=== PATIENT | female | born 2000 | race Caucasian/White ===

== ENCOUNTER 2019-05-17 19:07 | Emergency (ER) | payer OTHER, SELFPAY ==
[2019-05-17 19:09] VITALS: BP 156/80; PULSE 116; RESP 14; TEMP 36.7; O2SAT 100; BMI 39.0
--- NOTE | 2019-05-17 21:25 | ED.VIS.GEN ---
History of Present Illness Chief Complaint: Abd Pain Informant: Patient Onset: Today Narrative: Patient presents with right upper quadrant tenderness 40 minutes after eating fried foods 4:30 PM 5 hours ago. Symptoms now subsiding. No vomiting or diarrhea. No fevers. 2 weeks ago similar symptoms with fried foods. States at that time was adjusting her diet until today, she ate fried sweet potatoes. No past medical history. No surgical history. Prior similar symptoms: Yes Past Medical History - Allergies and Home Meds Allergies/Adverse Reactions: Allergies watermelon Allergy (Verified 05/17/19 19:09) Anaphylaxis lavender (Lavandula angustifolia) Adverse Reaction (Verified 05/17/19 19:09) Itching Primary Care Physician: Delmar Avila, UPSETTER SETTER UP-C [Primary Care Provider] - Past Medical History: None Smoking Status: Never smoker Review of Systems General: Denies: Chills, Fever, Sweats Eyes: Denies: Visual changes - bilaterally, Diplopia ENT: Denies: Rhinorrhea, Sore throat Cardiovascular: Denies: Chest pain, Palpitations Respiratory: Denies: Dyspnea, Cough, Dyspnea on exertion Gastrointestinal: Reports: Abdominal pain. Denies: Nausea, Vomiting, Diarrhea, Melena, Hematochezia Genitourinary: Denies: Dysuria, Hematuria, Frequency Musculoskeletal: Denies: Back pain, Extremity Pain Skin: Denies: Rash, Wounds Neurological: Denies: Headache, Weakness, Numbness Physical Exam Vital Signs/Narrative: Vital Signs Temp Pulse Resp BP Pulse Ox 05/17/19 19:09 98.0 F 116 H 14 156/80 H 100 General: Well nourished, Well developed, No Acute Distress Head: Normocephalic, Atraumatic Eyes: Perrl, EOMI ENT: Moist mucous membranes, No rhinorrhea Neck: Supple, Nontender Cardiovascular: Regular rate, Regular rhythm, No murmurs Respiratory: No distress, CTA bilaterally, Chest nontender Abdomen: Soft, Nontender, Nondistended, Normal bowel sounds, - - Negative McBurney's tenderness.. Negative for: Garnett's sign Back: Nontender, Normal Inspection Extremities: Nontender, No edema Skin: Normal color, No rash Neurological: Alert, Oriented x3, Cranial nerves II-XII grossly intact, Normal Strength, Normal Sensation Psychological: Normal affect, Normal Mood Diagnostic/Tx/Re-eval - Medical Decision Making Patient currently a nontender abdomen symptoms have resolved. With her history discussed with patient concerns for biliary colic. Offered discussed can obtain ultrasound however do not feel this is acutely flared that require any emergent surgeries. She understands agrees and will hold off at this time. Discussed withholding from fatty foods she is lactose intolerant and therefore will avoid dairy products. She will follow-up with her PCP for reevaluation return if any worsening symptoms. All questions were answered. ED Disposition - Plan for ED Patient: Disposition: Home or Assisted Living Diagnosis: Biliary colic Instructions: BILIARY COLIC with Gallstone (Presumed) Referrals: Delmar Avila, YVON-C [Primary Care Provider] - 5-7 Days
[2019-05-17 21:48] VITALS: BP 132/75; PULSE 100; RESP 16; O2SAT 97
== END 2019-05-17 21:48 | disposition home or self-care (01) ==
PROVIDERS: Emergency Provider Emergency Medicine; PCP Nurse Practitioner Family
DX: K80.50 Calculus of bile duct without cholangitis or cholecystitis without obstruction (principal)
CPT/HCPCS: 99282

== ENCOUNTER 2023-03-20 12:25 | Outpatient (CLI) | payer MEDICAID, SELFPAY ==
[2023-03-20 12:56] VITALS: BMI 46.5
[2023-03-20 13:03] VITALS: BP 133/80; PULSE 84
[2023-03-20 13:04] VITALS: TEMP 37.1
[2023-03-20 13:15] VITALS: BP 129/74; PULSE 82
[2023-03-20 13:54] LABS: Hemoglobin 10.3 g/dL (12.0-15.0); Mean Corp Hgb Conc 30.3 g/dL (32-36); Mean Corpuscular Hgb 22.2 pg (27.0-32.0); Mean Corpuscular Volume 73.4 fL (81-99); Mean Platelet Vol. 10.2 fl (6.2-12.0); Platelet Count 260 K/mm3 (150-450); RBC Distribution Width CV 14.6 % (11.6-14.6); RBC Distribution Width SD 38.7 fl (35.1-43.9); Red Blood Count 4.63 M/mm3 (4.2-5.4); White Blood Count 10.1 K/mm3 (4.4-11.0)
[2023-03-20 14:07] LABS: AST(SGOT) 11 U/L (15-37); Alanine Aminotransfer ALT/SGPT 8 U/L (13-56); Creatinine, Serum 0.76 mg/dL (0.55-1.02); EST Glomerular Filtration Rate 99 mL/min (>60); Est Glom Filt Rate - Afr Amer 119 mL/min (>60); Estimated Creatinine Clearance 123.43 ml/min; Protein, Urine (Random) 20.7 mg/dL (<11.9); Protein:Creat Ratio 274 mg/g CRE (0-200)
--- NOTE | 2023-03-24 18:32 | OB.TRI.PN ---
Progress Notes Progress Note: at 36weeks with GEOFF 04/17/23. Presents for elevated BP at home. No headache severe, visual changes or RUQ pain. No vaginal bleeding, fluid leakage or contractions. Laboratory Studies: Laboratory Tests 03/20/23 Range/Units 13:40 WBC 10.1 (4.4-11.0) K/mm3 RBC 4.63 (4.2-5.4) M/mm3 Hgb 10.3 L (12.0-15.0) g/dL Hct 34.0 L (37-47) % MCV 73.4 L (81-99) fL MCH 22.2 L (27.0-32.0) pg MCHC 30.3 L (32-36) g/dL RDW Std Deviation 38.7 (35.1-43.9) fl RDW Coeff of Ariella 14.6 (11.6-14.6) % Plt Count 260 (150-450) K/mm3 MPV 10.2 (6.2-12.0) fl Creatinine 0.76 (0.55-1.02) mg/dL Estim Creat Clear Calc 123.43 ml/min Est GFR (MDRD) Af Amer 119 (>60) mL/min Est GFR (MDRD) Non-Af 99 (>60) mL/min Uric Acid 6.0 (2.6-6.0) mg/dL AST 11 L (15-37) U/L ALT 8 L (13-56) U/L U Random Total Protein 20.7 H (<11.9) mg/dL Urine Creatinine 75.60 (NO RANGE EST.) mg/dL Protein/Creatinin Ratio 274 H (0-200) mg/g CRE NST 145, moderate, accels, no decels, reactive Assessment & Plan (1) 36 weeks gestation of : PLAN: Plan 1) BP normal range 2) PC ratio normal 3) Follow up outpatient tomorrow for further management recommendations. Preeclampsia precautions reviewed. 4) D/C home
== END 2023-03-20 14:05 | disposition home or self-care (01) ==
LOC: WPOUT 12:35 → WP 12:35
PROVIDERS: PCP Nurse Practitioner Family; Referring Provider Advanced Practice Midwife; Visit Provider Advanced Practice Midwife
DX: O99.891 Other specified diseases and conditions complicating pregnancy (principal); R03.0 Elevated blood-pressure reading, without diagnosis of hypertension; Z79.899 Other long term (current) drug therapy; Z3A.36 36 weeks gestation of pregnancy
CPT/HCPCS: 59025; 59050; 82565; 82570; 84156; 84450; 84460; 84550; 85027; 99221; G0378

== ENCOUNTER 2023-03-26 19:03 | Inpatient (IN) | payer MEDICAID, SELFPAY ==
[2023-03-26 19:27] VITALS: BP 157/88; PULSE 85; TEMP 37.2; O2SAT 99
[2023-03-26 19:34] VITALS: BMI 45.1
[2023-03-26 20:48] LABS: Absolute Lymphocyte Count 1.78 X10^3/uL (0.83-4.51); Absolute Neutrophil Count 6.9 X10^3/uL (2.0-7.7); Basophil# 0.04 X10^3/uL; Basophil% 0.4 % (0-1); Eosinophil# 0.25 X10^3/uL; Eosinophils% 2.6 % (0-5); Hematocrit 31.5 % (37-47); Hemoglobin 9.7 g/dL (12.0-15.0); Lymphocyte # 1.78 X10^3/ul (0.83-4.51); Lymphocyte % 18.5 % (19-41); Mean Corp Hgb Conc 30.8 g/dL (32-36); Mean Corpuscular Hgb 22.7 pg (27.0-32.0); Mean Corpuscular Volume 73.6 fL (81-99); Mean Platelet Vol. 10.3 fl (6.2-12.0); Monocyte% 6.3 % (0-10); NRBC Flagged by Analyzer 0 % (0-5); Neutrophil # 6.88 X10^3/uL (2.7-7.7); Neutrophil % 71.7 % (47-70); Platelet Count 274 K/mm3 (150-450); RBC Distribution Width CV 14.9 % (11.6-14.6); RBC Distribution Width SD 39.6 fl (35.1-43.9); Red Blood Count 4.28 M/mm3 (4.2-5.4); White Blood Count 9.6 K/mm3 (4.4-11.0)
[2023-03-26] MEDS: miSOPROStol 25 MCG TABLET PO (20:52)
[2023-03-26 21:02] LABS: AST(SGOT) 9 U/L (15-37); Alanine Aminotransfer ALT/SGPT 9 U/L (13-56); Creatinine, Serum 0.92 mg/dL (0.55-1.02); EST Glomerular Filtration Rate 80 mL/min (>60); Est Glom Filt Rate - Afr Amer 96 mL/min (>60); Estimated Creatinine Clearance 105.39 ml/min; Prothrombin Time (Protime)PT. 13.1 SECONDS (11.7-14.9); Uric Acid 6.2 mg/dL (2.6-6.0)
[2023-03-26 21:06] LABS: LDH 177 U/L (84-246)
[2023-03-26 21:22] LABS: Syphilis Antibodies Non-reactive
[2023-03-26 21:58] LABS: Bedside Glucose 101 mg/dL (74-106)
[2023-03-26 21:58] LABS: Bedside Glucose 101 mg/dL (74-106)
[2023-03-26] MEDS: CHLORHEXIDINE GLUC 2% CLOTH 1 EACH TOWELETTE TOPICAL (22:00)
[2023-03-26 22:07] LABS: Protein, Urine (Random) 126.5 mg/dL (<11.9); Protein:Creat Ratio 426 mg/g CRE (0-200)
[2023-03-26 23:05] VITALS: O2SAT 97
[2023-03-26 23:06] VITALS: BP 140/87; PULSE 77; TEMP 37.1; O2SAT 97
[2023-03-27] VITALS (35 sets, daily range): BP systolic 125–175; BP diastolic 74–106; PULSE 67–103; RESP 18; TEMP 36.6–37.8; O2SAT 95–100
[2023-03-27] MEDS: miSOPROStol 25 MCG TABLET PO ×2 (01:05→05:09)
[2023-03-27 04:53] LABS: Bedside Glucose 79 mg/dL (74-106)
[2023-03-27 04:53] LABS: Bedside Glucose 79 mg/dL (74-106)
[2023-03-27] MEDS: 0.9% Normal Saline Single 100 ML IV.SOLN. INTRA-UTER (08:00)
--- NOTE | 2023-03-27 08:14 | PCM.HP.OB ---
HPI - General General Date of Admission: 03/26/23 HPI Narrative ALISSA SANCHEZ, is a 23 F @ 37 weeks who presents for IOL for GHTN and GDMA1, obesity in - cytotec IOL was started. BPs have been mild range overnight. BS all WNL. pt denies OSORIO, visual changes. PFSH PFSH Medical History (Updated 03/27/23 @ 08:[address] Letitia Hall MD) Anxiety Depression Home Medications [id number] 40 mg-1 mg chewable tablet tab PO DAILY 03/26/23 [History Last Taken Unknown] Allergy/AdvReac Type Severity Reaction Status Date / Time bee pollen Allergy Mild sneezing Verified 03/26/23 21:58 watermelon Allergy Anaphylaxis Verified 03/26/23 19:33 lavender (Lavandula AdvReac Itching Verified 03/26/23 19:33 angustifolia) Surgical History Hx of tonsillectomy Social History Smoking Status: Never smoker History Elective abortions Hx Para 0 Spontaneous abortions Hx # Term Pregnancies Ectopic pregnancies Hx # Pregnancies Multiple births # of living children NST FHR Rate Baby A Baseline: 140 Variability:: Moderate Accelerations:: 15 x 15 Decelerations:: None NST Reactive:: Yes FHR Category:: Category I Uterine Activity:: occasional Vital Signs Vital Signs Vital Signs: 03/26/23 19:27 03/26/23 19:27 03/26/23 19:27 Temperature Temperature Source Temporal Pulse Rate 85 Blood Pressure 157/88 H BP Systolic 157 BP Diastolic 88 Pulse Ox 03/26/23 19:27 03/26/23 19:27 03/26/23 19:27 Temperature 99.0 F Temperature Source Temporal Pulse Rate Blood Pressure BP Systolic BP Diastolic Pulse Ox 99 03/26/23 19:27 03/26/23 19:27 03/26/23 23:06 Temperature 99.0 F Temperature Source Pulse Rate Blood Pressure 140/87 H BP Systolic 140 BP Diastolic 87 Pulse Ox 99 03/26/23 23:06 03/26/23 23:05 03/26/23 23:06 Temperature Temperature Source Temporal Pulse Rate 77 Blood Pressure BP Systolic BP Diastolic Pulse Ox 97 03/26/23 23:06 03/26/23 23:06 03/27/23 03:18 Temperature 98.7 F Temperature Source Pulse Rate Blood Pressure 142/84 H BP Systolic 142 BP Diastolic 84 Pulse Ox 97 03/27/23 03:18 03/27/23 03:17 03/27/23 03:17 Temperature Temperature Source Temporal Pulse Rate 67 Blood Pressure BP Systolic BP Diastolic Pulse Ox 99 03/27/23 03:17 03/27/23 03:17 03/27/23 07:43 Temperature 98.1 F Temperature Source Pulse Rate Blood Pressure 138/81 H BP Systolic 138 BP Diastolic 81 Pulse Ox 99 03/27/23 07:43 03/27/23 07:43 03/27/23 07:43 Temperature 98.4 F Temperature Source Temporal Pulse Rate 80 Blood Pressure BP Systolic BP Diastolic Pulse Ox Weight Weight: 146.692 kg Body Mass Index (BMI) 45.1 Physical Exam Narrative Fingertip/Thick/-5, Voss placed with 30cc NS Const alert and oriented x3 General Appearance: cooperative HEENT normocephalic GI GI Narrative: Gravid, non tender to palpation. OB / External & Speculum: external exam normal Extremity normal to inspection Skin no rashes or lesions noted Neuro oriented x3 and CN's II-XII intact bilaterally Psych Appearance: grossly normal Labs Labs Labs: Blood Type Pending Antibody Screen NEGATIVE Hct 31.5 % (37-47) L Hgb 9.7 g/dL (12.0-15.0) L Syphilis Total Ab Non-reactive Assessment & Plan (1) Obesity affecting : (2) Gestational diabetes: (3) Gestational hypertension affecting first : PLAN: Plan Admit to L&D Montior FHR/TOCO Epidural if requested for pain Monitor VS Anticipate was given cytotec- will transition to pitocin at 9am transcervical voss placed Bedside ultrasound confirmed VERTEX ON EXAM
[2023-03-27 08:54] LABS: Bedside Glucose 82 mg/dL (74-106)
[2023-03-27] MEDS: CHLORHEXIDINE GLUC 2% CLOTH 1 EACH TOWELETTE TOPICAL ×2 (09:03→20:30)
[2023-03-27] MEDS: Lactated Ringers 1,000 ML 50 ML IV ×2 (09:04→14:39)
[2023-03-27] MEDS: 0.9% Saline Lock 10 ML Syringe IV ×3 (09:08→14:36)
--- NOTE | 2023-03-27 09:41 | PCM.PN.BLA ---
Progress Note pt examined at bedside- voss expelled: /-3 AROM performed Clear fluid- large amt. IUPC and IFM placed.
[2023-03-27] MEDS: Oxytocin 15 Units/NS 250ml 15 UNITS/250 ML IV.SOLN 2 UNITS IV (10:30)
[2023-03-27] MEDS: LACTATED RINGERS 500 ML 999 ML IV (10:51)
[2023-03-27 11:58] LABS: Bedside Glucose 80 mg/dL (74-106)
[2023-03-27] MEDS: fentaNYL-bupivacaine (epidural) 100 ML BAG EPIDURAL ×2 (13:00→17:04)
[2023-03-27 15:32] LABS: Bedside Glucose 92 mg/dL (74-106)
[2023-03-27 19:51] LABS: Bedside Glucose 115 mg/dL (74-106)
[2023-03-27 20:39] LABS: Bedside Glucose 91 mg/dL (74-106)
--- NOTE | 2023-03-27 20:44 | PCM.PN.BLA ---
Progress Note late entry: at approximately 6pm I examined patient at bedside - VE: 4cm/70/-3 head was easily disengaged with minimal pressure. Discussed that cervix was stretchy 4cm. Discussed minimal change since morning AROM exam around 9:30am. Discussed option to continue Pitocin and Labor or Primary cs. Pt at that time wanted to continue labor. Pt was then checked by BENNY Goodman at 8pm- who described exam at 5-6cm/80/-3 again cervical exam stretchy. pt at this time discussed with nursing staff that she is exhausted and would like to proceed with elective C/S for maternal. Upon my arrival on unit pt declined another cervical exam until she is in OR and more comfortable. I discussed in detail risks of cs with patient including but not limited to bleeding, infection, wound dehiscence, injury to pelvic structures. Pt voiced understanding and was given opportunity to ask questions. OR Team notified and mobilized. PRE OP abx ordered. Will recheck patient in OR.
[2023-03-27] MEDS: Acetaminophen 500 MG Tablet PO (20:54)
[2023-03-27] MEDS: Cefazolin 3 GM in 0.9% Normal Saline (100mL Bag) 100 ML IV (21:03)
[2023-03-27] MEDS: Azithromycin 500 MG in Dextrose 5%-Water (250mL Bag) 250 ML 250 MG IV (21:12)
--- NOTE | 2023-03-27 21:28 | PLAC_PTH ---
PATIENT: ALISSA PINEDA LOC: [facility] U#:[id number] AGE/SX: 23/F ROOM: [facility] RE03/26/[address]: Dr. Letitia Hall, MDDOB: 2000 BED: 1 DIS: 03/30/2023 SPEC #: [id number] RECD: 03/28/23 08:33 STATUS: DYLON GONZALES #: [id number] DOLORES: 03/27/23 21:[address]: Letitia Hall DEPT: SURGICAL PATHOLOGY RECD BY: Eboni Glynn ENTERED: 03/28/23 08:34 SP TYPE: PLACENTA OTHR DR: Delmar Avila, INVENTORY ASSISTANT-C Tissues: Placenta, NOS Procedures: Surgery Specimen Level V HEADER OPERATION: Primary section PRE-OP DIAGNOSIS: Pre-e/diabetes TISSUE SUBMITTED: Placenta MICROSCOPIC DIAGNOSIS [place] placenta (578 gm): Umbilical cord - trivascular with no evidence of inflammation. Placental membranes - No pathologic change. Placental disc - foci of organizing intraparenchymal hemorrhage, Yadi-Yaya change and intravillous and intervillous congestion. AM:pedro 03/30/2023 MICROSCOPIC DESCRIPTION Slides are reviewed. GROSS DESCRIPTION SPECIMEN: PLACENTA / CLINICAL INFORMATION: A. Weight: 3.03 kg B. Gestational Age: 37 weeks C. Sex: Male PLACENTAL WEIGHT (POST FIXATION): 578 gm PLACENTAL DIMENSIONS: 17.0 x 15.0 x 3.5 cm PLACENTAL SHAPE: Usual ovoid PLACENTAL WEIGHT FOR GESTATIONAL AGE: Greater than 99th percentile MEMBRANES - Present A. Insertion: Marginal, minimal membranous tissue adherent to peripheral margin B. Site of rupture from edge: At edge of placental disc C. Color of membrane: Jones-hazel D. Abnormalities: None UMBILICAL CORD - Present A. Color: Jones-hazel B. Insertion: Eccentric C. Length: 52.0 cm D. Diameter: 1.6 cm E. Number of vessels: Three F. Abnormalities: None PLACENTAL DISC - Present A. Color of surface: Jones-hazel B. surface abnormalities: None C. Maternal cotyledons: Intact with minimal tears D. Attached retro placental clot: No clot E. Cut surface: Dark red and spongy F. Lesions: Serial sections reveal two firm, jones-white lesions measuring 1.2 x 1.0 x 0.6 cm and 1.5 x 0.5 x 0.5 cm G. Separate clot: 13.0 x 9.0 x 2.0 cm SECTIONS SUBMITTED: 1. Umbilical cord ( end notched) 2. Umbilical cord, placental end 3. Membrane roll 4. Placental disc, and maternal surfaces, lesion 5. Placental disc, and maternal surfaces, lesion 6. Placental disc, and maternal surfaces AM:pedro 03/29/2023 TC:5 CPT: 21018
--- NOTE | 2023-03-27 21:52 | EX.PCM.OBRPT ---
Details Operative Information Date of Procedure: 03/27/23 Pre-Operative Diagnosis: 37 weeks, Preeclampsia w/o severe features, GDMA1, obesity in , failed IOL, maternal exhaustion, Post-Operative Diagnosis: same, live male infant Indications Narrative: Pt still 4-5cm/70-80/-3 - after 11 hours of AROM, Pitocin with adequate contractions. Pt Given option to continue with IOL - pt opting for Primary cs at this time. Classification: LUISA Procedure Type: low transverse beader #1: Padmini Barboza Type of Anesthesia: Epidural Antibiotic Given: Ancef 3 grams IV x1 and Zithromax 500 mg/5 mL X1 Drain: Schrader to straight drain Estimated Blood Loss: 600 Fluids Replaced: 1100 Procedure Start Time: 21:20 Procedure Stop Time: 21:59 Time of Delivery: 21:28 Findings Description of Procedure: After informed consent was obtained the patient was taken the operating room She was then placed in the supine position. She was prepped and draped in the normal sterile fashion. epidural Anesthesia was found to be adequate. At this time a Pfannenstiel skin incision was made with a knife was carried down to the underlying layer of the fascia. The fascial incision was then extended laterally using curved Chairez scissor. Attention was then turned to the superior aspect of the fascial edge was grasped with 2 straight Grimstead clamps tented up and the rectus muscle dissected off sharply using curved Chairez scissor. Rectus muscles were then in the midline bluntly and peritoneum was entered bluntly. Gentle opposing traction was placed. At this time the vesicouterine peritoneum was identified. Zhou-O rectractor placed. Scalpel was used to make a uterine incision in a low transverse fashion. The uterus was then entered bluntly gentle opposing traction was placed to extend this incision. Cord was clamped and cut was handed to the waiting nursery team. The Placenta was removed from the uterus. The uterus was then removed from the abdominal cavity. The uterus was cleared of all clots and debris using a lap. At this time the uterine incision was reapproximated using #1 Vicryl in a running locked fashion. Hemostasis was appreciated. Posterior cul-de-sac was then cleared of all clots and debris. Zhou O removed- Uterus was placed back in the abdominal cavity. Gutters were cleared of all clots and debris. Uterine incision was reevaluated and noted to be of excellent hemostasis. Kulwant placed over incision. At this time the peritoneum was grasped with Kellys reapproximated using #2 Vicryl suture in a running fashion. Kulwant placed over rectus muscle. Fascia was then reapproximated using #1 PDS in a running fashion. Subcu layer was Irrigated with NS Bovie used to coagulate any oozing. Kulwant placed and then reapproximated with #2 0 plain gut suture in an interrupted fashion. Subcu layer was closed using 4-0 Monocryl in a subcu fashion. Dry sterile dressing was applied. Instrument lap needle count correct ?2. Anticipated normal postoperative course. Presentation: Positive for Vertex Amniotic Fluid Description: Clear Placental Delivery Description: Expressed Placenta Disposition: [facility] Specimen(s) Sent to Pathology: placenta Cord Vessel Description: 3 Vessels Cord Entanglement: None A Gender: Male (1 minute): 8 (5 minute): 9 Delayed Cord Clamping: Yes Complications Risks of Surgery Discussed w/Patient: Bleeding, Anesthesia Risks, Infection, Need for Future C-Sections and Injury to surrounding structure(s) including bowel and bladder Complications: none
[2023-03-27] MEDS: Oxytocin 15 Units/NS 250ml 15 UNITS/250 ML IV.SOLN 83 UNITS IV (22:07)
[2023-03-27] MEDS: HYDROmorphone 1 MG/ML Syringe IV (22:55)
[2023-03-27] MEDS: Ketorolac 30 MG/ML Syringe IV (22:56)
[2023-03-27 23:08] LABS: Pathology Specimen OB SEE PATHOLOGY REPORT
[2023-03-28] VITALS (9 sets, daily range): BP systolic 117–157; BP diastolic 68–92; PULSE 76–105; RESP 16–18; TEMP 36.4–37.1; O2SAT 95–99
[2023-03-28] MEDS: Lactated Ringers 1,000 ML 100 ML IV (01:32)
[2023-03-28] MEDS: Acetaminophen 650 MG/20 ML UDC 1000 MG PO ×4 (03:39→22:19)
[2023-03-28] MEDS: Ketorolac 30 MG/ML Syringe IV ×3 (04:53→17:23)
[2023-03-28 05:16] LABS: Bedside Glucose 102 mg/dL (74-106)
--- NOTE | 2023-03-28 06:37 | NURSING ---
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 Pharmacy was called prior to pts c/s to discuss flavoring of Bicitra Pharmacy unable to confirm flavoring ingredients in Bicitra. This was discussed with and Louie DOUGLASS prior to C/S and decision was made not to give pre op Bicitra
--- NOTE | 2023-03-28 06:38 | NURSING ---
epidural cath removed. blue tip intact.
[2023-03-28 06:47] LABS: Hematocrit 28.9 % (37-47); Hemoglobin 8.7 g/dL (12.0-15.0); Mean Corp Hgb Conc 30.1 g/dL (32-36); Mean Corpuscular Hgb 22.1 pg (27.0-32.0); Mean Corpuscular Volume 73.5 fL (81-99); Mean Platelet Vol. 10.3 fl (6.2-12.0); Platelet Count 235 K/mm3 (150-450); RBC Distribution Width CV 14.8 % (11.6-14.6); RBC Distribution Width SD 39.4 fl (35.1-43.9); Red Blood Count 3.93 M/mm3 (4.2-5.4); White Blood Count 11.5 K/mm3 (4.4-11.0)
--- NOTE | 2023-03-28 08:25 | PN.OBGYN_ITS ---
Subjective Subjective Doing well per patient and nursing staff. Ambulating and taking PO without difficulty. Voiding and passing flatus. Pain controlled. , services for assistance. Denies headache, visual changes, chest pain, shortness of breath, leg pain or increased bleeding. Lochia normal. Objective Data Objective Data Vital Signs: Vital Signs Temp Pulse Resp BP Pulse Ox O2 Del Method 98.6 F 76 18 129/79 H 97 Room Air 03/27/23 22:07 03/28/23 06:46 03/28/23 06:46 03/28/23 06:46 03/28/23 01:19 03/28/23 06:46 Oxygen Delivery Method Room Air Weight: 323 lb 6.4 oz Body Mass Index (BMI) 45.1 Intake & Output: Intake and Output for Last 24 Hours 03/26/23 03/27/23 03/28/23 23:59 23:59 23:59 Intake Total 1206.54 / 1206.54 620 / 620 Output Total 50 / 50 1025 / 1025 1050 / 1050 Balance -50 / -50 181.54 / 181.54 -430 / -430 Lab / Micro Data 03/28/23 06:41 03/26/23 20:30 Labs: Laboratory Results - last 24 hr 03/27/23 07:55: POC Glucose 82 03/27/23 11:40: POC Glucose 80 03/27/23 15:08: POC Glucose 92 03/27/23 19:32: POC Glucose 115 H 03/27/23 20:19: POC Glucose 91 03/28/23 01:24: POC Glucose 53 L 03/28/23 04:36: POC Glucose 102 03/28/23 06:41: WBC 11.5 H, RBC 3.93 L, Hgb 8.7 L, Hct 28.9 L, MCV 73.5 L, MCH 22.1 L, MCHC 30.1 L, RDW Std Deviation 39.4, RDW Coeff of Ariella 14.8 H, Plt Count 235, MPV 10.3 ROS Constitutional Constitutional: Reports systems reviewed and no addt'l complaints, except as documented; Denies headache(s) Eyes Eyes: Denies acute decrease in peripheral vision, blurry vision or change in vision ENT HEENT: Reports systems reviewed and no addt'l complaints, except as documented Cardiovascular Cardiovascular: Denies chest pain or dizziness Respiratory/Chest Respiratory/Chest: Denies cough, dyspnea, dyspnea on exertion, shortness of br eath at rest or shortness of breath with exertion Gastrointestinal Gastrointestinal: Denies abdominal pain, diarrhea, nausea or vomiting Genitourinary Genitourinary: Denies abdominal discomfort Musculoskeletal Musculoskeletal: Denies limited range of motion Integumentary Integumentary: Reports systems reviewed and no addt'l complaints, except as documented Neurologic Neurologic: Reports systems reviewed and no addt'l complaints, except as documented Psychiatric Psychiatric: Reports systems reviewed and no addt'l complaints, except as documented Endocrine Endocrinology: Reports systems reviewed and no addt'l complaints, except as documented Hematologic/Lymphatic Hematologic/Lymphatic: Reports systems reviewed and no addt'l complaints, except as documented Allergic/Immunologic Allergic/Immunologic: Reports systems reviewed and no addt'l complaints, except as documented Physical Exam Const alert and oriented x3 General Appearance: cooperative Orientation / Consciousness: awake, oriented to person, oriented to place and oriented to time Exam Limitations: no limitations HEENT normocephalic Head and Scalp: normal to inspection, normocephalic and atraumatic Face and Sinus: normal facial exam Eyes General Eye: normal appearance of both eyes Neck full ROM Chest Chest: symmetrical chest wall rise Resp normal respiratory effort and normal air movement Auscultation: clear to auscultation bilaterally Cardio regular rate, regular rhythm, S1 normal heart sound, S2 normal heart sound, no murmurs, no rub, no gallops and no clicks GI normal to inspection, nondistended, normoactive bowel sounds and non-tender GI Narrative: Dressing dry and intact. Fundus firm 2 below U appearance of the vagina normal Bladder / Kidney Exam: no CVA tenderness Back/Spine normal ROM Extremity normal to inspection and full ROM Skin no rashes or lesions noted Neuro oriented x3, CN's II-XII intact bilaterally and moves all extremities Sensorium / Orientation: awake, alert and oriented to person Motor Exam: clonus absent Deep Tendon Reflexes: Rt Patellar (L4): 2+ and Lt Patellar (L4): 2+ Assessment & Plan (1) Delivery by section: (2) Preeclampsia: (3) Gestational hypertension affecting first : (4) Gestational diabetes: (5) Acute blood loss anemia: PLAN: Plan 1) POD#1 Primary sectin 2) Acute blood loss anemia, iron infusion 3) Pain management 4) BP trending down, will monitor and start anti hypertensives if necessary. Asymtomatic 5) I&O 6) Planning D/C POD #3 for Preeclampsia
[2023-03-28] MEDS: Senna/Docusate Sodium 1 Tablet PO (09:27)
[2023-03-28] MEDS: oxyCODONE 5 MG Tablet PO (09:59)
[2023-03-28] MEDS: Iron Sucrose Complex 200 MG in 0.9% Normal Saline (100mL Bag) 100 ML 220 MG IV (11:02)
[2023-03-28] MEDS: Enoxaparin 40 MG/0.4 ML Syringe SC ×2 (11:02→22:19)
[2023-03-28] MEDS: 0.9% Saline Lock 10 ML Syringe IV ×3 (11:03→17:23)
[2023-03-28] MEDS: Ibuprofen 100 MG/5 ML UDC 600 MG PO (23:42)
[2023-03-29 02:06] VITALS: BP 138/81; PULSE 85; RESP 16; TEMP 36.2; O2SAT 95
[2023-03-29] MEDS: Acetaminophen 650 MG/20 ML UDC 1000 MG PO ×3 (05:08→19:26)
[2023-03-29] MEDS: Ibuprofen 100 MG/5 ML UDC 600 MG PO ×3 (05:10→18:25)
[2023-03-29] MEDS: 0.9% Saline Lock 10 ML Syringe IV (05:49)
[2023-03-29 07:36] VITALS: BP 139/80; PULSE 92; RESP 16; TEMP 36.7; O2SAT 98
[2023-03-29 11:01] VITALS: BP 143/75; PULSE 104; RESP 18; TEMP 36.9; O2SAT 98
[2023-03-29] MEDS: Senna/Docusate Sodium 1 Tablet PO (11:02)
[2023-03-29] MEDS: Enoxaparin 40 MG/0.4 ML Syringe SC ×2 (11:03→22:44)
[2023-03-29 12:13] VITALS: BP 139/86
--- NOTE | 2023-03-29 13:22 | PCM.PN.CNM ---
Subjective Subjective Patient seen at bedside. Feeling good. Pain is controlled with PO medications. Ambulating and voiding without difficulty. Lochia decreasing. Passing flatus. Denies any headache, dizziness, vision changes, SOB, or CP. Objective Data Objective Data Vital Signs: Vital Signs Temp Pulse Resp BP Pulse Ox O2 Del Method 98.5 F 104 H 18 139/86 H 98 Room Air 03/29/23 11:01 03/29/23 11:01 03/29/23 11:01 03/29/23 12:13 03/29/23 11:01 03/29/23 07:36 Oxygen Delivery Method Room Air Weight: 323 lb 6.4 oz Body Mass Index (BMI) 45.1 Intake & Output: Intake and Output for Last 24 Hours 03/27/23 03/28/23 03/29/23 23:59 23:59 23:59 Intake Total 1206.54 / 1206.54 1730 / 1730 Output Total 1025 / 1025 1750 / 1750 Balance 181.54 / 181.54 -20 / -20 Lab / Micro Data 03/28/23 06:41 03/26/23 20:30 Labs: Laboratory Results - last 24 hr 03/28/23 01:24: POC Glucose Cancelled ROS Eyes Eyes: Denies blurry vision, change in vision or spots in vision ENT HEENT: Denies dizziness or headache(s) Cardiovascular Cardiovascular: Denies abdominal pain, chest pain or dyspnea Respiratory/Chest Respiratory/Chest: Denies cough, dyspnea, shortness of breath at rest or shortness of breath with exertion Gastrointestinal Gastrointestinal: Denies abdominal pain, diarrhea or vomiting Genitourinary Genitourinary: Denies change in urinary stream, difficulty urinating or dysuria Musculoskeletal Musculoskeletal: Reports none Integumentary Integumentary: Denies rash Neurologic Neurologic: Denies dizziness, headache(s), memory loss or weakness Physical Exam Narrative Dressing is dry and intact Const alert and no apparent distress General Appearance: cooperative and comfortable Exam Limitations: no limitations HEENT normocephalic Eyes General Eye: normal appearance of both eyes Neck full ROM General: normal visual inspection Chest Chest: symmetrical chest wall rise Resp normal respiratory effort and normal air movement Effort and Inspection: symmetric chest movement Auscultation: clear to auscultation bilaterally Cardio regular rate and regular rhythm GI normal to inspection, nondistended, normoactive bowel sounds Back/Spine normal ROM Extremity full ROM and no calf tenderness General Extremity: normal exam except as noted Skin no rashes or lesions noted Neuro CN's II-XII intact bilaterally Psych mental status grossly normal Assessment & Plan (1) Acute blood loss anemia: (2) Delivery by section: (3) Preeclampsia: (4) Obesity affecting : (5) Gestational hypertension: (6) Gestational diabetes: PLAN: Plan POD 2 Primary C/S Routine care Pain control BP's running 140's/80's Start Procardia 30 mg XL daily S/P iron transfusion Cannot recheck CBC due to inability to get blood- lab and anesthesia tried for blood draw- Patient refusing another blood draw Anticipate discharge home tomorrow
[2023-03-29 16:00] VITALS: BP 138/78; PULSE 102; RESP 16; TEMP 36.6; O2SAT 98
[2023-03-29] MEDS: NIFEdipine 30 MG Tablet PO (17:39)
[2023-03-29] MEDS: hydrOXYzine PAM 25 MG Capsule 50 MG PO (19:26)
[2023-03-29 20:15] VITALS: BP 126/68; PULSE 99; RESP 16; TEMP 37.1; O2SAT 100
[2023-03-30] MEDS: Ibuprofen 100 MG/5 ML UDC 600 MG PO ×2 (00:11→06:19)
[2023-03-30] MEDS: Acetaminophen 650 MG/20 ML UDC 1000 MG PO ×2 (01:12→07:46)
[2023-03-30 02:46] VITALS: BP 131/71; PULSE 92; RESP 16; TEMP 36.6; O2SAT 96
--- NOTE | 2023-03-30 07:24 | DS.PCM_ITS ---
Providers Date of Admission: 03/26/23 Primary Care Physician: Delmar Avila, VP BUSINESS DEVELOPMENT-C Reason For Visit: PRIMARY C- SECTION Diagnosis Discharge Diagnosis (1) Acute blood loss anemia: Status: Acute Code(s): D62 - Acute posthemorrhagic anemia (2) Delivery by section: Status: Acute (3) Preeclampsia: Status: Acute Code(s): O14.90 - Unspecified pre-eclampsia, unspecified trimester (4) Obesity affecting : Status: Acute Code(s): O99.210 - Obesity complicating , unspecified trimester (5) Gestational hypertension: Status: Acute Code(s): O13.9 - Gestational [-induced] hypertension without significant proteinuria, unspecified trimester (6) Gestational diabetes: Status: Acute Code(s): O24.419 - Gestational diabetes mellitus in , unspecified control Plan POD 3 Primary C/S Pain control support BP stable D/C home with follow up in office next week Medications at Discharge Home Medications [id number]-svdv-LF 40 mg-1 mg chewable tablet tab PO DAILY 03/26/23 acetaminophen 650 mg/20.3 mL oral solution 1,000 mg (31.2308 mL) PO Q6H #0 mL 03/30/23 hydroxyzine pamoate 25 mg capsule 50 mg (2 x 25 mg) PO TID PRN PRN Anxiety #60 caps 03/30/23 ibuprofen 100 mg/5 mL oral suspension (Children's Ibuprofen) 600 mg (30 mL) PO Q6H #0 mL 03/30/23 nifedipine 30 mg tablet,extended release 24 hr 30 mg PO DAILY #30 tabs 03/30/23 sennosides 8.6 mg-docusate sodium 50 mg tablet (Stool Softener-Stimulant Laxative) 1 - 2 tab PO DAILY #0 tabs 03/30/23 Hospital Course Operations section Procedures None Summary of Care Provided Minutes Spent on Discharge: 20 Hospital Course: Patient had primary section. Hospital course was uneventful Physical Exam Narrative Dressing is dry and intact. Denies any headache, vision changes, RUQ pain, SOB or CP. Requesting discharge home today. Const alert and no apparent distress General Appearance: cooperative and comfortable Exam Limitations: no limitations HEENT normocephalic Eyes General Eye: normal appearance of both eyes Neck full ROM General: normal visual inspection Chest Chest: symmetrical chest wall rise Resp normal respiratory effort and normal air movement Effort and Inspection: symmetric chest movement Auscultation: clear to auscultation bilaterally Cardio regular rate and regular rhythm GI normal to inspection, nondistended, normoactive bowel sounds Back/Spine normal ROM Extremity full ROM and no calf tenderness General Extremity: normal exam except as noted Skin no rashes or lesions noted Neuro CN's II-XII intact bilaterally Psych mental status grossly normal Weight / BMI Weight Weight: 323 lb 6.4 oz Body Mass Index (BMI) 45.1 ABG / Lab / Microbiology Data 03/28/23 06:41 03/26/23 20:30 D/C Instructions Discharge Diet: No restrictions Discharge Activity: May Drive (2 weeks) and May Shower May resume sexual activity in: 6-8 weeks Weight Bearing Status: Weight bearing as tolerated Call your doctor if your incision/area has: Continuous Slow Oozing, Sudden Increased Bleeding, Increased Pain/ Swelling, Increased Redness, Foul Smelling Discharge and Swelling at the incision site Call your doctor if you observe: Fever of 101 or Higher, Numbness or Tingling, Using more than 1 pad per hour, Shortness of breath, Dizziness, Swelling in the ankles, Chest pain, Calf discomfort and Uncontrolled pain Suture Line Care: Avoid Pulling/Pushing Change Dressing in: leave in place till F/U Remove Dressing in: leave until fall off Additional Instructions: Take blood pressure daily- report any out of range results of >160/110 or any headaches with vision changes, SOB or CP When: 1 week for blood pressure and incision check Meaningful Use Info Meaningful Use Diagnoses (Choose all that apply): None applicable Discharge Plan Admission Admit Date/Time: 03/26/23 19:03 Primary Reason for Your Visit: Labor and Delilvery Attending Provider: Letitia Hall Primary Care Provider: Delmar Avila NP Discharge Orders/Prescriptions Prescriptions: New nifedipine 30 mg Tablet Extended Release 24hr 30 mg PO DAILY Qty: 30 0RF sennosides-docusate sodium [Stool Softener-Stimulant Laxat] 8.6-50 mg Tablet 1 - 2 tab PO DAILY Qty: 0 0RF ibuprofen [Children's Ibuprofen] 100 mg/5 mL Suspension 600 mg PO Q6H Qty: 0 0RF hydroxyzine pamoate 25 mg Capsule 50 mg PO TID PRN PRN (Reason: Anxiety) Qty: 60 0RF acetaminophen 650 mg/20.3 mL Solution 1,000 mg PO Q6H Qty: 0 0RF Continued [id number]-psiy-YL 40-1 mg tablet,chewable PO DAILY Referrals / Follow Up: Delmar vAila VP BUSINESS DEVELOPMENT, VP BUSINESS DEVELOPMENT-C [Primary Care Provider] - Disposition Disposition (needs filled in before D/C Order can be placed): Home, Self Care
[2023-03-30 08:17] VITALS: BP 132/79; PULSE 86; RESP 16; TEMP 36.5; O2SAT 100
[2023-03-30 08:31] VITALS: BP 132/79; PULSE 86; RESP 16; TEMP 36.5; O2SAT 100
[2023-03-30] MEDS: Senna/Docusate Sodium 1 Tablet PO (09:27)
--- NOTE | 2023-03-30 10:19 | CASEMGMT ---
Social Work Assessment Labor and Delivery Unit Patient Address: [address] [place] [address] Phone number: [phone] Date of Referral: 03/28/23 Time of Referral:? [phone] Referred By: Letitia Johnson Date of Intervention: ??03/28/23 Time of Intervention:?1300 Reason for Referral:? Mental health, history of anxiety Sw completed chart review and acknowledges social work consult due to maternal mental health history positive for anxiety. Sw presented to bedside and introduced self to mother of baby (MOB- Erlinda) and father of baby (FOB- Asa). Sw explained reason for social work consult and completed psychosocial assessment. Sw asked FOB to step out of room momentarily so that MOB could complete Procious Depression Scale. FOB did so willingly and respectfully. History obtained from: medical records, MOB and FOB Household composition: Currently residing in the home is MOB and FOMeel, and now baby boy. Parents deny any concerns or issues with their housing at this time. Patient's parent/guardian status:? MIMI reports that parents have been together for 2.5 years, they met through work. While meeting with MOB privately she denies any concerns with domestic violence or intimate partner violence. ? Medical History: ?MIMI is 23 year old female who is 1, para 0- now 1 following labor and delivery of . MIMI received routine care during with [facility]. MIMI delivered baby boy via following an induction of labor at 36 weeks gestation. Baby boy, named Guillermo Mc was born weighing 7lb and his apgars were 8 and 9 at one and five minutes of life respectfully. MOB states that she is and it is going well. met with MOB and baby while sw was in room, and reported that for being born early baby was feeding very well. MOB states that baby will be followed by Dr. Maloney for pediatrics. Educational Status:?Both parents graduated from high school and deny issues with reading, learning or comprehension. MOB obtained her licensure in cosmetology. Financial Status: Both parents are gainfully employed outside of the home. MOB is a is manager and is able to take off as much time as she needs. 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 Supplies:?? Parents have obtained all necessary baby supplies, including: car seat, safe sleep space, clothes, diapers and wipes. MIMI states that she also has a breast pump for home. Childcare/Caregiver(s):? During maternity leave MOB will be the primary caregiver to baby, along with FOB when he is not at work. MIMI states that one of her clients runs an in-home daycare and baby will be able to go there for childcare should parents work schedules overlap with each other. Transportation:?Both parents have their drivers license and reliable means of transportation. NO transportation barriers at this time. Programs/Agencies Involved: MIMI is connected to insurance though [employer] and [facility] ([place]). Rj provided list of critical access hospital resources for parents to reference should any needs or concerns present themselves. ??? Children Services/Legal Issues:??? No history of involvement with Children Services, no issues or concerns warranting a referral to be made at this time. Behavioral Health Issues: ??Mental Health History:?PHYLICIA denies mental health history. MIMI states that she has been diagnosed with anxiety and depression. MIMI states that these diagnoses are a result of a lot of things throughout her lifetime. MIMI states that she is prescribed zoloft to help manage her symptoms. MIMI completed Procious depression scale, her score was an 11. Rj educated MIMI on importance of being aware of her symptoms and encouraged linkage to community mental health supports throughout her journey. MIMI stated that PHYLICIA is a good support person for her and he would be able to recognize when MIMI is struggling, and he would know how to offer support. ?? Substance Use History: MIMI denies substance use prior to and during . ?? Family History:??Parents deny family history of significant mental health diagnoses and substance use. ??? Drug Screens: No urine screens observed in chart review. ?? Family/Social Stressors:? Parents deny any stressors or concerns at this time. Support Systems: Parents report that their parents and group of friends are extremely supportive. Depression/Shaken Baby/Safe Sleeping:? Rj educated MOB and PHYLICIA on signs and symptoms of baby blue and depression/ anxiety to be on the lookout for. Rj explained to MIMI that she is more susceptible to experiences these sytmptoms due to her mental health history, and already scoring an 11 on the Procious scale. MOB expressed understanding. Sw educated parents on shaken baby prevention and ABCs of safe sleep. Parents expressed understanding. ASSESSMENT:?MOB and baby admitted following labor and delivery of baby. Parents talkative and open to discussing mental health history with sw. MOB made eye contact during conversation, but answers to psychosocial assessment questions were quick and were not elaborated. MOB informed that she would benefit to getting connected to mental health supports during her journey. Parents have obtained all necessary baby supplies, and have adequate supports. PLAN:?MOB and baby to be discharged when medically ready. ?No other services requested or indicated. Luisa Conte, BUSINESS OPERATIONS MANAGER, LINE CONSTRUCTION SUPERINTENDENT
== END 2023-03-30 09:40 | disposition home or self-care (01) | DRG 540 ==
PROVIDERS: Advanced Practice Midwife; Obstetrics & Gynecology; Admitting Provider Obstetrics & Gynecology; PCP Nurse Practitioner Family; Visit Provider Obstetrics & Gynecology
DX: O14.04 Mild to moderate pre-eclampsia, complicating childbirth (principal); D62 Acute posthemorrhagic anemia; O24.420 Gestational diabetes mellitus in childbirth, diet controlled; O99.214 Obesity complicating childbirth; O90.81 Anemia of the puerperium; O75.81 Maternal exhaustion complicating labor and delivery; O61.0 Failed medical induction of labor; Z37.0 Single live birth; Z3A.37 37 weeks gestation of pregnancy
CPT/HCPCS: 59025; 59050; 76815; 82565; 82570; 82962; 83615; 84156; 84450; 84460; 84550; 85025; 85027; 85610; 85730; 86780; 86850; 86900; 86901; 88307; 99221; J1756; J7120; A4216; G0378; J2405

== ENCOUNTER 2024-01-11 13:30 | Emergency (ER) | payer MEDICAID, SELFPAY ==
[2024-01-11 13:30] VITALS: BP 181/101; BP 186/89; PULSE 103; PULSE 111; RESP 22; TEMP 36.6; O2SAT 100; O2SAT 95; BMI 43.2
--- NOTE | 2024-01-11 13:50 | EKG12_ITS ---
Test Reason : SYNCOPE Blood Pressure : / mmHG Vent. Rate : 104 BPM Atrial Rate : 104 BPM P-R Int : 136 ms QRS Dur : 078 ms QT Int : 350 ms P-R-T Axes : 032 022 014 degrees QTc Int : 460 ms Sinus tachycardia Poor R wave progression Borderline Confirmed by Dann Mendez ([id number]), social media editor MATHIEU FORD ([id number]) on 01/15/2024 10:45:59 AM Referred By: Confirmed By:Dann Mendez
[2024-01-11 14:59] VITALS: BP 145/67; PULSE 91; RESP 18
[2024-01-11 15:00] VITALS: BP 130/70; PULSE 96
--- NOTE | 2024-01-11 15:01 | NURSING ---
NO OLD EKGS
--- NOTE | 2024-01-11 15:11 | RAD_ITS ---
INDICATION: shortness of breath, EXAMINATION/TECHNIQUE: X-RAY - portable upright AP chest x-ray COMPARISON: None. FINDINGS: LINES/DEVICES: None. LUNGS: Patient rotated. No consolidation, vascular congestion or pleural effusion. MEDIASTINUM AND CARDIOVASCULAR STRUCTURES: Cardiac silhouette within normal limits. BONES AND SOFT TISSUES: Unremarkable. RAD/Chest 1 View (Portable) IMPRESSION: No radiographic evidence of acute cardiopulmonary disease. Electronically Signed: Shekhar Duncan MD at 16:53 EDT ,
--- NOTE | 2024-01-11 15:48 | EDS_ITS ---
HPI History of Present Illness Chief Complaint: Syncope Narrative Narrative: Chief complaint and HPI: Near syncope. 23-year-old female who is G2, P1 presents for evaluation of near syncope. 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 She states she just walked up the stairs, blew her nose, when she developed tunnel vision, weakness, nausea. Patient states she felt like she was going to pass out. She states she fell to her knees but did not hit her abdomen, head, other extremities. Patient states she did not fully lose consciousness. Patient states immediately after she did have some chest tightness and shortness of breath. She states she does not know if this was secondary to her anxiety. Patient states she called her friend who then gave her a protein shake. Patient does endorse decreased appetite secondary to no appetite with this . She denies any nausea or vomiting. She endorses little p.o. intake today as well as water. She states that she drank 2 coffees. Patient has been intermittently getting headaches throughout her . Currently denies headache, lightheadedness, chest pain, shortness of breath, abdominal pain, diarrhea, dysuria, hematuria. Patient states that she follows with Dr. Pagan. She endorses swelling of her legs. Patient states she previously has had preeclampsia with her previous . On arrival patient is hypertensive she states she is usually low and that this is abnormal for this . Review of systems: See HPI Medications: As listed on the chart Allergies: As listed on the chart PFSH: Per chart Vital signs: As listed on the chart. Reviewed. Physical exam: Gen: A&O x3, NAD Head: Normocephalic, atraumatic Eyes: No sclera icterus, conjunctiva clear, PERRL, EOMI ENT: Moist mucous membranes Neck: Trachea midline, No JVD CV: RRR, no murmurs, mild nonpitting peripheral edema Resp: Lungs CTA BL, no w/r/c GI: Large body habitus, abd soft, non-distended, non-tender, no r/r/g Musc: Full ROM, no deformity Skin: Warm, dry Neuro: Alert, oriented, grossly intact, sensation intact Psych: Cooperative, appropriate mood and affect but anxious PFS PFS Medical History (Updated 01/11/24 @ 17:[address] Clifton Bui, ) Gestational hypertension Acute blood loss anemia Preeclampsia Gestational hypertension affecting first Gestational diabetes Obesity affecting Depression Anxiety Home Medications ?Medication ?Instructions ?Recorded ?Last Taken ?Type msjrolt-omgy-KS 40 mg-1 tab PO DAILY 03/26/23 Unknown History mg chewable tablet acetaminophen 650 mg/20.3 mL oral 1,000 mg (31.2308 mL) PO Q6H #0 mL 03/30/23 Unknown Rx solution hydroxyzine pamoate 25 mg capsule 50 mg (2 x 25 mg) PO TID PRN PRN 03/30/23 Unknown Rx Anxiety #60 caps ibuprofen 100 mg/5 mL oral 600 mg (30 mL) PO Q6H #0 mL 03/30/23 Unknown Rx suspension (Children's Ibuprofen) nifedipine 30 mg tablet,extended 30 mg PO DAILY #30 tabs 03/30/23 Unknown Rx release 24 hr sennosides 8.6 mg-docusate sodium 1 - 2 tab PO DAILY #0 tabs 03/30/23 Unknown Rx 50 mg tablet (Stool Softener-Stimulant Laxative) Allergy/AdvReac Type Severity Reaction Status Date / Time bee pollen Allergy Mild sneezing Verified 01/11/24 13:31 watermelon Allergy Anaphylaxis Verified 01/11/24 13:31 lavender (Lavandula AdvReac Itching Verified 01/11/24 13:31 angustifolia) Surgical History Delivery by section Hx of tonsillectomy Social History Smoking Status: Never smoker EXAM Physical Exam Const Vital Signs: 01/11/24 13:30 01/11/24 13:30 01/11/24 14:59 Temperature 98 F Temperature Source Temporal Pulse Rate 111 H 103 H 91 Respiratory Rate 22 H 22 H 18 Respiratory Effort Respiratory Pattern Blood Pressure 186/89 H 181/101 H 145/67 H Blood Pressure Mean 121 127 93 Pulse Ox 100 95 Oxygen Delivery Method Room Air Room Air Room Air 01/11/24 14:59 01/11/24 15:00 01/11/24 16:00 Temperature Temperature Source Pulse Rate 96 84 Respiratory Rate 18 Respiratory Effort Normal Non-Labored Respiratory Pattern Normal Blood Pressure 130/70 H 122/64 H Blood Pressure Mean 88 83 Pulse Ox 99 Oxygen Delivery Method Room Air 01/11/24 17:00 01/11/24 17:21 Temperature 97.4 F L Temperature Source Pulse Rate 82 81 Respiratory Rate 20 H 22 H Respiratory Effort Respiratory Pattern Blood Pressure 115/59 L Blood Pressure Mean 77 Pulse Ox 99 99 Oxygen Delivery Method Room Air MDM MDM MDM Narrative Medical decision making narrative: 23-year-old female who is G2, P1 and 20 weeks presents for evaluation of near syncope. Did not hit her head or abdomen. Endorse some chest pain and shortness of breath after the incident. Endorses decreased p.o. and fluid intake. Differential diagnosis includes but is not limited to dehydration, electrolyte abnormality, preeclampsia, gestational hypertension, CAD, cardiomyopathy, PE. On presentation, patient is tachycardic and hypertensive at 186/89. She is very anxious in the room. NS bolus ordered. Near-syncope workup ordered. Given that patient did not hit her head and is not endorsing any headache, I do not think CT head is needed at this time. EKG and chest x-ray reviewed see below. CBC without leukocytosis. Patient has baseline anemia. No thrombocytopenia. CMP without electrolyte abnormality or MIRIAM. No transaminitis. D-dimer and troponin unremarkable. BNP unremarkable. UA negative for UTI. Patient does have leuk esterases but this can be seen in . No bacteria or nitrates. She does have ketones in her urine which is consistent with dehydration. On reevaluation, patient's blood pressure is improved. Her blood pressure is 115/59. She is no longer tachycardic. I s uspect that patient's near syncope was secondary to dehydration and decreased p.o. intake. heart tones 150. She is currently asymptomatic. Given her hypertension on presentation as well as her near syncope, ODD PIECE CHECKER was contacted and patient was discussed. I spoke to the associate professor of anthropology for Dr. Pagan. Given that patient's hypertension have improved with fluids and management okay with discharge home. Patient has to follow-up in their office. Patient was educated on all her results and the plan. She confirmed understanding. She was educated that she needs to keep up with her p.o. intake especially fluids. She was told to decrease her caffeine intake. She confirmed understanding of the plan. Patient is able to discharge home EKG: Interpreted by me/EM physician: EKG shows sinus tachycardia with heart rate of 104. No acute ischemic changes. Diagnostic: Interpreted by me/EM physician: Chest x-ray without pneumonia, effusion, cardiomegaly, pneumothorax. Impression: 1. Near syncope 2. Dehydration 3. Second trimester 4. Hypertension, resolved Lab Data Labs: Laboratory Results - last 24 hr 01/11/24 01/11/24 01/11/24 15:51 15:59 16:12 WBC 10.6 RBC 4.57 Hgb 11.0 L Hct 35.7 L MCV 78.1 L MCH 24.1 L MCHC 30.8 L RDW Std Deviation 44.8 H RDW Coeff of Ariella 15.9 H Plt Count 241 MPV 9.7 Immature Gran % (Auto) 0.700 Neut % (Auto) 78.1 H Lymph % (Auto) 14.5 L Archuleta % (Auto) 4.6 Eos % (Auto) 1.8 Baso % (Auto) 0.3 Absolute Neuts (auto) 8.3 H Absolute Lymphs (auto) 1.54 Nucleated RBC % 0 D-Dimer Quant (PE/DVT) < 0.27 L Sodium 136 Potassium 3.8 Chloride 106 Carbon Dioxide 24.0 Anion Gap 6 BUN 7 Creatinine 0.66 Estim Creat Clear Calc 210.85 Est GFR (MDRD) Af Amer 139 Est GFR (MDRD) Non-Af 115 BUN/Creatinine Ratio 10.5 Glucose 90 Calcium 9.4 Total Bilirubin 0.20 AST 5 L ALT 8 L Alkaline Phosphatase 90 Lactate Dehydrogenase 126 Troponin I High Sens < 3 L B-Natriuretic Peptide 13.9 Total Protein 7.0 Albumin 2.8 L Globulin 4.2 Albumin/Globulin Ratio 0.7 L Urine Color Yellow Urine Clarity Clear Urine pH 6.5 Ur Specific [place] 1.010 Urine Protein Negative Urine Glucose (UA) Normal Urine Ketones 15 H Urine Occult Blood Negative Urine Nitrite Negative Urine Bilirubin Negative Urine Urobilinogen Normal Ur Leukocyte Esterase 25 H Urine RBC 0 SEEN Urine WBC 0 SEEN Ur Squamous Epith Cells 0 SEEN Urine Bacteria 0 SEEN Urine Mucus 0 SEEN POC Glucose 86 Radiography Diagnostic Testing: Clinical Impression(s) from Imaging Studies Chest X-Ray 01/11/24 15:11 IMPRESSION: No radiographic evidence of acute cardiopulmonary disease. Electronically Signed: Shekhar Duncan MD at 16:53 EDT , Discharge Plan Triage Chief Complaint: Syncope ED Provider: Clifton Bui Dx/Rx/DC Orders Clinical Impression: Near syncope, Acute dehydration, Instructions: Dehydration Prescriptions: No Action guovazx-mzlq-CM 40-1 mg tablet,chewable PO DAILY nifedipine 30 mg Tablet Extended Release 24hr 30 mg PO DAILY Qty: 30 0RF sennosides-docusate sodium [Stool Softener-Stimulant Laxat] 8.6-50 mg Tablet 1 - 2 tab PO DAILY Qty: 0 0RF ibuprofen [Children's Ibuprofen] 100 mg/5 mL Suspension 600 mg PO Q6H Qty: 0 0RF hydroxyzine pamoate 25 mg Capsule 50 mg PO TID PRN PRN (Reason: Anxiety) Qty: 60 0RF acetaminophen 650 mg/20.3 mL Solution 1,000 mg PO Q6H Qty: 0 0RF Primary Care Provider: Delmar Avila NP Referrals: Meaghan Pagan CNM [Med Staff - Adv Practice Prof] - 3-5 Days Delmar Avila COUNSELING CASE MANAGER, COUNSELING CASE MANAGER-C [Primary Care Provider] - 3-5 Days Activity Restrictions/Additional Instructions: Make sure you are eating and drinking. Decrease your caffeine intake. Follow- up with your ODD PIECE CHECKER as soon as possible. Return if symptoms worsen or change Print Language: Citizen Of [place] Disposition Disposition: Home, Self Care
[2024-01-11] MEDS: 0.9% Normal Saline (1000mL) 1,000 ML 1000 ML IV (15:51)
[2024-01-11 16:00] VITALS: BP 122/64; PULSE 84; RESP 18; O2SAT 99
[2024-01-11 16:02] LABS: Absolute Lymphocyte Count 1.54 X10^3/uL (0.83-4.51); Absolute Neutrophil Count 8.3 X10^3/uL (2.0-7.7); Basophil# 0.03 X10^3/uL; Basophil% 0.3 % (0-1); Eosinophil# 0.19 X10^3/uL; Eosinophils% 1.8 % (0-5); Hematocrit 35.7 % (37-47); Lymphocyte # 1.54 X10^3/ul (0.83-4.51); Lymphocyte % 14.5 % (19-41); Mean Corp Hgb Conc 30.8 g/dL (32-36); Mean Corpuscular Hgb 24.1 pg (27.0-32.0); Mean Corpuscular Volume 78.1 fL (81-99); Mean Platelet Vol. 9.7 fl (6.2-12.0); Monocyte# 0.49 X10^3/uL; Monocyte% 4.6 % (0-10); NRBC Flagged by Analyzer 0 % (0-5); Neutrophil # 8.31 X10^3/uL (2.7-7.7); Neutrophil % 78.1 % (47-70); Platelet Count 241 K/mm3 (150-450); RBC Distribution Width CV 15.9 % (11.6-14.6); RBC Distribution Width SD 44.8 fl (35.1-43.9); Red Blood Count 4.57 M/mm3 (4.2-5.4); White Blood Count 10.6 K/mm3 (4.4-11.0)
[2024-01-11 16:19] LABS: Bedside Glucose 86 mg/dL (74-106)
[2024-01-11 16:31] LABS: ALB/GLOB Ratio 0.7 RATIO (0.9-2.4); AST(SGOT) 5 U/L (15-37); Alanine Aminotransfer ALT/SGPT 8 U/L (13-56); Albumin, Serum 2.8 g/dL (3.2-5.0); Alkaline Phosphatase 90 U/L (45-117); Anion Gap 6 (5-15); BUN 7 mg/dL (7-18); BUN/Creat Ratio 10.5 RATIO (10-20); Calcium,Total 9.4 mg/dL (8.5-10.1); Chloride 106 mmol/L (98-107); Creatinine, Serum 0.66 mg/dL (0.55-1.02); D-Dimer Quantitative (DVT/PE) < 0.27 FEU/ug/m (0.27-0.49); EST Glomerular Filtration Rate 115 mL/min (>60); Est Glom Filt Rate - Afr Amer 139 mL/min (>60); Estimated Creatinine Clearance 210.85 ml/min; Globulin 4.2 g/dL (2.2-4.2); Glucose 90 mg/dL (74-106); LDH 126 U/L (84-246); Potassium 3.8 mmol/L (3.5-5.1); Sodium Level 136 mmol/L (136-145); Troponin-I HS < 3 pg/mL (3.0-54.0)
[2024-01-11 16:33] LABS: BNP,B-Type NATRIURETIC PEPTIDE 13.9 pg/mL (0-100)
[2024-01-11 16:33] LABS: Bacteria 0 SEEN /hpf (None Seen); Mucous, Urine 0 SEEN /hpf (<or=2+); Red Blood Cells-Urine 0 SEEN /hpf (0-5); Squamous Epithelial Cells - UA 0 SEEN /hpf (5-10); White Blood Cells 0 SEEN /hpf (0-5)
[2024-01-11 16:37] LABS: Color, Urine Yellow (Yellow); Glucose, Dipstick Normal (Normal); Ketone-Dipstick 15 mg/dl (Negative); Leukocyte Esterase-Dipstick 25 /ul (Negative); Nitrite-Dipstick Negative (Negative); Occult Blood-Urine Negative /ul (Negative); Protein-Dipstick Negative (Negative); Urine Bilirubin Dipstick Negative (Negative); Urine Clarity Clear (Clear); Urine Urobilinogen Normal (Normal); Urine pH 6.5 (5.0 - 8.0)
[2024-01-11 17:00] VITALS: PULSE 82; RESP 20; O2SAT 99
[2024-01-11 17:21] VITALS: BP 115/59; PULSE 81; RESP 22; TEMP 36.3; O2SAT 99
== END 2024-01-11 17:58 | disposition home or self-care (01) ==
PROVIDERS: Emergency Provider Surgery; PCP Nurse Practitioner Family; Visit Provider Surgery
DX: O99.891 Other specified diseases and conditions complicating pregnancy (principal); O99.282 Endocrine, nutritional and metabolic diseases complicating pregnancy, second trimester; E86.0 Dehydration; R55 Syncope and collapse; Z3A.20 20 weeks gestation of pregnancy
CPT/HCPCS: 71045; 80053; 81001; 82962; 83615; 83880; 84484; 85025; 85379; 93005; 96360; 96361; 99284; J7030; A4216

== ENCOUNTER 2024-04-26 17:14 | Outpatient (CLI) | payer OTHER, MEDICAID, SELFPAY ==
[2024-04-26] VITALS (7 sets, daily range): BP systolic 119–133; BP diastolic 67–80; PULSE 83–104; RESP 16; TEMP 36.6
[2024-04-26 19:07] LABS: Protein, Urine (Random) 40.2 mg/dL (<11.9); Protein:Creat Ratio 151 mg/g CRE (0-200)
--- NOTE | 2024-04-27 08:48 | OB.TRI.NOTE ---
HPI - General General Date of Admission: 04/26/24 Date of Service: 04/26/24 Chief Complaint: lightheaded HPI Narrative ALISSA SANCHEZ, is a 24 F who presents after working all day and not having a lunch break complaining of some lightheadedness and seeing some spots. She has a history of preeclampsia in her previous and presented for evaluation for rule out preeclampsia. She denied any vaginal bleeding or leaking of fluid. She had good movement. No significant headache. No regular contractions. Maternal Data Information Final GEOFF: 05/26/24 Gestational age: 35 5/7 [facility] Medical History (Updated 04/27/24 @ 08:[address] Albina Wolfe MD) Gestational hypertension Acute blood loss anemia Preeclampsia Gestational hypertension affecting first Gestational diabetes Obesity affecting Depression Anxiety Home Medications ?Medication ?Instructions ?Recorded ?Last Taken ?Type ojsrzua-ocje-UP 40 mg-1 tab PO DAILY 03/26/23 Unknown History mg chewable tablet acetaminophen 650 mg/20.3 mL oral 1,000 mg (31.2308 mL) PO Q6H #0 mL 03/30/23 Unknown Rx solution ibuprofen 100 mg/5 mL oral 600 mg (30 mL) PO Q6H #0 mL 03/30/23 Unknown Rx suspension (Children's Ibuprofen) nifedipine 30 mg tablet,extended 30 mg PO DAILY #30 tabs 03/30/23 Unknown Rx release 24 hr sennosides 8.6 mg-docusate sodium 1 - 2 tab PO DAILY #0 tabs 03/30/23 Unknown Rx 50 mg tablet (Stool Softener-Stimulant Laxative) Allergy/AdvReac Type Severity Reaction Status Date / Time bee pollen Allergy Mild sneezing Verified 01/11/24 13:31 watermelon Allergy Anaphylaxis Verified 01/11/24 13:31 lavender (Lavandula AdvReac Itching Verified 01/11/24 13:31 angustifolia) Surgical History Delivery by section Hx of tonsillectomy Social History Smoking Status: Never smoker History Elective abortions Hx Para 0 Spontaneous abortions Hx # Term Pregnancies Ectopic pregnancies Hx # Pregnancies Multiple births # of living children Physical Exam Narrative Awake, alert, no acute distress Abdomen soft, nontender, gravid Extremities 1+ edema, 2+ DTRs no clonus, symmetrical NST FHR Rate Baby A Baseline: 130 Variability:: Moderate Accelerations:: 15 x 15 Decelerations:: None NST Reactive:: Yes Uterine Activity:: no regular ctxs Assessment & Plan (1) High risk multigravida in third trimester: PLAN: 35 weeks with maternal obesity, history of preeclampsia in previous and lightheadedness. No evidence of preeclampsia today. Blood pressures are normal and protein creatinine ratio was normal. Did not draw blood work as there is no clinical evidence of preeclampsia patient felt better after sitting down resting, and she is a difficult blood draw. Recommended she increase her hydration and follow-up in the office as scheduled or return as needed. NST is reactive. Patient was comfortable with this plan.
== END 2024-04-26 20:30 | disposition home or self-care (01) ==
LOC: WPOUT 17:20 → WP 17:21
PROVIDERS: PCP Nurse Practitioner Family; Referring Provider Obstetrics & Gynecology; Visit Provider Obstetrics & Gynecology
DX: O26.893 Other specified pregnancy related conditions, third trimester (principal); R42 Dizziness and giddiness; O09.43 Supervision of pregnancy with grand multiparity, third trimester; O26.03 Excessive weight gain in pregnancy, third trimester; O34.219 Maternal care for unspecified type scar from previous cesarean delivery; Z3A.35 35 weeks gestation of pregnancy; Z86.32 Personal history of gestational diabetes; Z87.59 Personal history of other complications of pregnancy, childbirth and the puerperium
CPT/HCPCS: 59025; 59050; 82570; 84156; 99221; G0378

== ENCOUNTER 2024-04-29 21:10 | Outpatient (CLI) | payer OTHER, MEDICAID, SELFPAY ==
[2024-04-29 22:05] VITALS: RESP 16; TEMP 37.2
[2024-04-29 22:06] VITALS: BP 131/68; PULSE 99
--- NOTE | 2024-04-29 22:23 | OB.TRI.HP_ITS ---
HPI - General General Date of Admission: 04/29/24 Date of Service: 04/29/24 Chief Complaint: DFM HPI Narrative ALISSA SANCHEZ, is a 24 F who presents with DFM at 36 wks. She states she is getting over a head cold and is having pressure and discomfort. Reports the baby is measuring ahead and she is uncomfortable and over it. No regular ctx, vb, lof, severe OSORIO. She is now feeling movement since she has been here. She has an appointment tomorrow for a growth US and BPP. [facility] Medical History (Updated 04/29/24 @ 22:[address] Carmen Light, DO) Gestational hypertension Acute blood loss anemia Preeclampsia Gestational hypertension affecting first Gestational diabetes Obesity affecting Depression Anxiety Home Medications ?Medication ?Instructions ?Recorded ?Last Taken ?Type iqujxbp-pgps-UE 40 mg-1 tab PO DAILY 03/26/23 04/29/24 History mg chewable tablet acetaminophen 650 mg/20.3 mL oral 1,000 mg (31.2308 mL) PO Q6H #0 mL 03/30/23 Unknown Rx solution ibuprofen 100 mg/5 mL oral 600 mg (30 mL) PO Q6H #0 mL 03/30/23 Unknown Rx suspension (Children's Ibuprofen) nifedipine 30 mg tablet,extended 30 mg PO DAILY #30 tabs 03/30/23 Unknown Rx release 24 hr sennosides 8.6 mg-docusate sodium 1 - 2 tab PO DAILY #0 tabs 03/30/23 Unknown Rx 50 mg tablet (Stool Softener-Stimulant Laxative) sertraline 50 mg tablet 50 mg PO DAILY 04/29/24 04/29/24 History Allergy/AdvReac Type Severity Reaction Status Date / Time bee pollen Allergy Mild sneezing Verified 04/29/24 22:17 watermelon Allergy Anaphylaxis Verified 04/29/24 22:17 lavender (Lavandula AdvReac Itching Verified 04/29/24 22:17 angustifolia) Surgical History Delivery by section Hx of tonsillectomy Social History Smoking Status: Never smoker History Elective abortions Hx Para 0 Spontaneous abortions Hx # Term Pregnancies Ectopic pregnancies Hx # Pregnancies Multiple births # of living children Physical Exam Const alert and no apparent distress General Appearance: comfortable NST FHR Rate Baby A Baseline: 130 Variability:: Moderate Accelerations:: 15 x 15 Decelerations:: None NST Reactive:: Yes FHR Category:: Category I Uterine Activity:: none Assessment & Plan (1) 36 weeks gestation of : (2) Decreased movement: PLAN: NST reactive Discharge home with follow up in the office tomorrow She is now feeling movement
[2024-04-29 22:29] VITALS: BMI 44.6
--- NOTE | 2024-05-06 16:50 | NURSING ---
05/06/24- Pt. called to speak to this IBCLC about breast pumps and obtaining a prescription for a pump through insurance as she plans to exclusively pump when she delivers. IBCLC assisted with this process. Pt. to call back if she has any questions or concerns.
== END 2024-04-29 22:30 | disposition home or self-care (01) ==
LOC: WPOUT 21:14 → WP 21:14
PROVIDERS: PCP Nurse Practitioner Family; Referring Provider Obstetrics & Gynecology; Visit Provider Obstetrics & Gynecology
DX: O36.8130 Decreased fetal movements, third trimester, not applicable or unspecified (principal); Z3A.36 36 weeks gestation of pregnancy
CPT/HCPCS: 59025; 59050; 99221; G0378

== ENCOUNTER 2024-05-16 18:45 | Outpatient (CLI) | payer OTHER, MEDICAID, SELFPAY ==
[2024-05-16] VITALS (20 sets, daily range): BP systolic 116–133; BP diastolic 58–75; PULSE 80–98; O2SAT 94–100; BMI 45.1
--- NOTE | 2024-05-16 19:05 | OB.TRI.NOTE ---
HPI - General HPI Narrative ALISSA SANCHEZ, is a 24 F at 38 weeks gestation who presents to triage with dizziness, headache, syncope, and blurry vision. Patient was laying on couch with toddler laying on top of her. She reports feeling hot, dizzy, and like she was going to pass out. Vision became blurred and she saw spots for a short time. She took her blood pressures at home and it was within normal range. Patient crying on the phone stating she is scared because she was preeclamptic last . She is scheduled for repeat section next week. Maternal Data Information GEOFF Calculator Estimated Delivery Date Method Current WG Current Estimate 05/26/24 Manual 38w 4d PFSH [facility] Medical History (Updated 05/16/24 @ 20:35 by Meaghan Paagn CNM) Obesity affecting Gestational hypertension Acute blood loss anemia Preeclampsia Gestational hypertension affecting first Gestational diabetes Depression Anxiety Home Medications ?Medication ?Instructions ?Recorded ?Last Taken ?Type mkuttog-[id number] 40 mg-1 1 tab PO DAILY 03/26/23 05/14/24 History mg chewable tablet sennosides 8.6 mg-docusate sodium 1 - 2 tab PO DAILY #0 tabs 03/30/23 Unknown Rx 50 mg tablet (Stool Softener-Stimulant Laxative) sertraline 50 mg tablet 50 mg PO DAILY 04/29/24 04/29/24 History Allergy/AdvReac Type Severity Reaction Status Date / Time Influenza Virus Vaccines Allergy Severe Anaphylaxis Verified 05/16/24 19:40 (flu vaccine) bee pollen Allergy Mild sneezing Verified 05/16/24 19:40 watermelon Allergy Anaphylaxis Verified 05/16/24 19:40 lavender (Lavandula AdvReac Itching Verified 05/16/24 19:40 angustifolia) Surgical History (Updated 05/16/24 @ 19:12 by Meaghan Pagan CNM) Delivery by section Hx of tonsillectomy Social History Smoking Status: Never smoker History Elective abortions Hx Para 0 Spontaneous abortions Hx # Term Pregnancies Ectopic pregnancies Hx # Pregnancies Multiple births # of living children ROS Cardiovascular Cardiovascular: Reports none; Denies chest pain at rest, chest pain with activity or dizziness Respiratory/Chest Respiratory/Chest: Denies cough or dyspnea Gastrointestinal Gastrointestinal: Reports none and other; Denies diarrhea or vomiting Genitourinary Genitourinary: Denies dysuria Musculoskeletal Musculoskeletal: Reports none Integumentary Integumentary: Reports none; Denies rash Neurologic Neurologic: Reports as per HPI Psychiatric Psychiatric: Reports none Physical Exam Const alert and no apparent distress General Appearance: cooperative Orientation / Consciousness: awake Exam Limitations: no limitations HEENT normocephalic Eyes General Eye: normal appearance of both eyes Neck full ROM Chest inspection of chest normal Resp normal respiratory effort and normal air movement Effort and Inspection: symmetric chest movement Auscultation: clear to auscultation bilaterally Cardio regular rate GI soft to palpation, non-tender and non-distended Inspection: and other Back/Spine normal ROM Extremity full ROM, normal capillary refill and no calf tenderness Skin no rashes or lesions noted Neuro oriented x3 and CN's II-XII intact bilaterally Psych mental status grossly normal NST FHR Rate Baby A Baseline: 130 Variability:: Moderate Accelerations:: 15 x 15 Decelerations:: None NST Reactive:: Yes FHR Category:: Category I Uterine Activity:: NONE Assessment & Plan (1) High risk multigravida in third trimester: (2) 38 weeks gestation of : (3) Delivery by section: (4) Obesity affecting : (5) Dizziness: (6) Syncope: (7) Anxiety: PLAN: Plan BP normal- 119/64 & 116/62 PIH labs normal Cat. 1 tracing - no contractions Headache improved since arrival Hungry and asking for dinner at this time D/C home with follow up as needed C/S on Monday Dr. Light involved with plan of care
[2024-05-16 19:38] LABS: Hematocrit 32.9 % (37-47); Hemoglobin 10.1 g/dL (12.0-15.0); Mean Corp Hgb Conc 30.7 g/dL (32-36); Mean Corpuscular Hgb 21.9 pg (27.0-32.0); Mean Corpuscular Volume 71.2 fL (81-99); Platelet Count 269 K/mm3 (150-450); RBC Distribution Width CV 15.6 % (11.6-14.6); RBC Distribution Width SD 39.3 fl (35.1-43.9); Red Blood Count 4.62 M/mm3 (4.2-5.4); White Blood Count 9.1 K/mm3 (4.4-11.0)
[2024-05-16 20:09] LABS: Protein, Urine (Random) < 6.0 mg/dL (<11.9); Protein:Creat Ratio 195 mg/g CRE (0-200)
[2024-05-16 20:33] LABS: AST(SGOT) 6 U/L (15-37); Alanine Aminotransfer ALT/SGPT 8 U/L (13-56); Creatinine, Serum 0.66 mg/dL (0.55-1.02); EST Glomerular Filtration Rate 115 mL/min (>60); Est Glom Filt Rate - Afr Amer 139 mL/min (>60); Estimated Creatinine Clearance 208.34 ml/min; Uric Acid 4.3 mg/dL (2.6-6.0)
== END 2024-05-16 20:34 | disposition home or self-care (01) ==
LOC: WPOUT 18:49 → WP 18:49
PROVIDERS: PCP Nurse Practitioner Family; Referring Provider Advanced Practice Midwife; Visit Provider Advanced Practice Midwife
DX: O99.891 Other specified diseases and conditions complicating pregnancy (principal); O99.343 Other mental disorders complicating pregnancy, third trimester; F41.9 Anxiety disorder, unspecified; F32.A Depression, unspecified; R42 Dizziness and giddiness; R55 Syncope and collapse; Z3A.38 38 weeks gestation of pregnancy; Z79.899 Other long term (current) drug therapy
CPT/HCPCS: 36415; 59025; 59050; 82565; 82570; 84156; 84450; 84460; 84550; 85027; 99221; G0378

== ENCOUNTER 2024-05-21 09:43 | Inpatient (IN) | payer OTHER, MEDICAID, SELFPAY ==
[2024-05-21] VITALS (13 sets, daily range): BP systolic 112–133; BP diastolic 62–79; PULSE 69–89; RESP 16–19; TEMP 36.1–36.8; O2SAT 98–100; BMI 45.0
[2024-05-21] MEDS: Lactated Ringers 1,000 ML 999 ML IV (10:00)
[2024-05-21 11:10] LABS: Syphilis Antibodies Non-reactive
[2024-05-21] MEDS: Acetaminophen 500 MG Tablet 1000 MG PO ×3 (11:18→23:41)
[2024-05-21 11:21] LABS: Absolute Lymphocyte Count 2.24 X10^3/uL (0.83-4.51); Absolute Neutrophil Count 6.6 X10^3/uL (2.0-7.7); Basophil# 0.03 X10^3/uL; Basophil% 0.3 % (0-1); Eosinophil# 0.28 X10^3/uL; Eosinophils% 2.9 % (0-5); Hematocrit 31.4 % (37-47); Hemoglobin 9.5 g/dL (12.0-15.0); Lymphocyte # 2.24 X10^3/ul (0.83-4.51); Lymphocyte % 22.9 % (19-41); Mean Corp Hgb Conc 30.3 g/dL (32-36); Mean Corpuscular Hgb 21.5 pg (27.0-32.0); Mean Platelet Vol. 10.2 fl (6.2-12.0); Monocyte# 0.51 X10^3/uL; Monocyte% 5.2 % (0-10); NRBC Flagged by Analyzer 0 % (0-5); Neutrophil # 6.64 X10^3/uL (2.7-7.7); Platelet Count 237 K/mm3 (150-450); RBC Distribution Width CV 15.6 % (11.6-14.6); Red Blood Count 4.42 M/mm3 (4.2-5.4); White Blood Count 9.8 K/mm3 (4.4-11.0)
[2024-05-21] MEDS: Sodium Citrate/Citric Acid 30 ML UDC PO (11:40)
[2024-05-21] MEDS: Cefazolin 3 GM in Syringe 1 EACH IV (12:15)
--- NOTE | 2024-05-21 12:19 | PCM.HP.OB ---
HPI - General General Date of Admission: 05/21/24 Date of Service: 05/21/24 Chief Complaint: repeat c/s HPI Narrative ALISSA SANCHEZ, is a 24 F who presents scheduled repeat Maternal Data Information GEOFF Calculator Estimated Delivery Date Method Current WG Current Estimate 05/26/24 Manual 39w 2d Final GEOFF: 05/26/24 Gestational age: 39+2 PFSH PFSH Medical History depression Gestational hypertension Acute blood loss anemia Preeclampsia Gestational hypertension affecting first Gestational diabetes Obesity affecting Depression Anxiety Home Medications ?Medication ?Instructions ?Recorded ?Last Taken ?Type hmuldeb-[id number]-VL 40 mg-1 1 tab PO DAILY 03/26/23 05/14/24 History mg chewable tablet sennosides 8.6 mg-docusate sodium 1 - 2 tab PO DAILY #0 tabs 03/30/23 Unknown Rx 50 mg tablet (Stool Softener-Stimulant Laxative) sertraline 50 mg tablet 50 mg PO DAILY 04/29/24 04/29/24 History Allergy/AdvReac Type Severity Reaction Status Date / Time Influenza Virus Vaccines Allergy Severe Anaphylaxis Verified 05/21/24 11:07 (flu vaccine) bee pollen Allergy Mild sneezing Verified 05/21/24 11:07 watermelon Allergy Anaphylaxis Verified 05/21/24 11:07 lavender (Lavandula AdvReac Itching Verified 05/21/24 11:07 angustifolia) Surgical History Delivery by section Hx of tonsillectomy Social History Smoking Status: Never smoker History 2 Elective abortions Hx Para 1 Spontaneous abortions Hx # Term Pregnancies Ectopic pregnancies Hx # Pregnancies Multiple births # of living children NST FHR Rate Baby A Baseline: 140 Accelerations:: 15 x 15 Decelerations:: None NST Reactive:: Yes FHR Category:: Category I Uterine Activity:: none ROS Constitutional Constitutional: Denies fatigue, fever(s) or malaise Eyes Eyes: Denies change in vision ENT HEENT: Denies dizziness or headache(s) Cardiovascular Cardiovascular: Denies chest pain, dyspnea or lightheadedness Respiratory/Chest Respiratory/Chest: Denies cough or dyspnea Gastrointestinal Gastrointestinal: Denies change in bowel habits Genitourinary Genitourinary: Denies burning urination or genital lesions Integumentary Integumentary: Denies rash Neurologic Neurologic: Denies confusion, dizziness, headache(s), numbness or weakness Vital Signs Vital Signs Vital Signs: 05/21/24 11:49 Temperature 97.0 F L Temperature Source Temporal Pulse Rate 82 Respiratory Rate 16 Blood Pressure 127/79 H Blood Pressure Mean 95 Blood Pressure Source Monitor Blood Pressure Position Semi-Fowlers Blood Pressure Location Left Arm Pulse Ox 98 Oxygen Delivery Method Room Air Weight Weight: 146.51 kg Body Mass Index (BMI) 45.0 Physical Exam Const alert and no apparent distress General Appearance: cooperative HEENT normocephalic Resp normal respiratory effort Cardio regular rate GI soft to palpation GI Narrative: gravid, nontender, appropriate for gestational age Extremity no calf tenderness General Extremity: edema Skin no wounds Rashes: No rashes noted Psych activity/motor behavior normal Labs Labs Labs: Blood Type O POSITIVE Antibody Screen NEGATIVE Hct 31.4 % (37-47) L Hgb 9.5 g/dL (12.0-15.0) L Syphilis Total Ab Non-reactive Assessment & Plan (1) 39 weeks gestation of : (2) Previous section complicating : PLAN: Plan Repeat
--- NOTE | 2024-05-21 13:12 | OP.PCM_ITS ---
Assessment & Plan (1) S/P : Maternal Data Information GEOFF Calculator Estimated Delivery Date Method Current WG Current Estimate 05/26/24 Manual 39w 2d Final GEOFF: 05/26/24 Gestational age: 39+2 Operative Report (OB) Cecarean Details Procedure Type: low transverse Date of Procedure: 05/21/24 Procedure Start Time: 12:39 Procedure Stop Time: 15:16 Time of Delivery: 12:48 Pre-Operative Diagnosis: Repeat Elective Post-Operative Diagnosis: Same as Pre-operative diagnosis Classification: Scheduled Type of Anesthesia: Spinal Antibiotic Given: Ancef 2 grams IV x1 Drain: Schrader to straight drain Estimated Blood Loss: 800cc Findings Description of surgery: Patient taken to the OR where spinal anesthesia and Schrader were placed. She was prepped and draped in the normal sterile fashion. A Pfannenstiel incision was made and carried down to the underlying fascia. The fascia was incised in the midline and extended laterally. The fascia was dissected from the muscle. The muscles divided in the midline. The peritoneum was entered bluntly and extended manually. A bladder blade was placed. A bladder flap was created. A low transverse incision was made and extended bluntly. The head was elevated to the incision but required vacuum assisted to bring through the incision. The first vacuum would not hold the proper suction. A second vacuum was opened and placed. Head delivered with one pull. The shoulders delivered easily. There was a cord around the neck x 1. The cord was cut and clamped. The placenta was delivered with josesito traction. The uterus was exteriorized and cleared of all clot and debris. The incision was repaired with 1-0 Vicryl x 2. The uterus was returned the abdomen, The gutter cleared of all clots. The peritoneum was closed with 2-0 Monocryl. The fascia was closed with 1-0 Vicryl. The subcutaneous tissue was reapproximated with 2-0 Monocryl The skin was closed with 4-0. I performed the major parts of the procedure with the RFNA assisting with retraction and closing the skin. The sponge lap and needle count was correct x 2 Surgical findings: normal uterus tubes and ovaries Presentation: Vertex Amniotic Membrane Rupture Type: Artificial Amniotic Fluid Description: Clear Placental Delivery Description: Spontaneous Placenta Disposition: [facility] Specimen collected: No Cord Vessel Description: 3 Vessels Cord Entanglement: Around neck x 1, loose Nuchal Cord Compression: Without compression Cord Gases: ABG and VBG Infant A gender: Male (1 minute): 8 (5 minute): 9 Delayed Cord Clamping: No Hospitalist Physician optical manufacturing technician: Yes Pump House Technician: Eric Clemens Tasks completed by assistant credit manager: Opening & closing and Retracting Complications Complications: No
[2024-05-21] MEDS: Oxytocin 15 Units/NS 250ml 15 UNITS/250 ML IV.SOLN 83 UNITS IV (13:20)
[2024-05-21] MEDS: Ketorolac 30 MG/ML Syringe IV ×2 (14:18→20:10)
[2024-05-21] MEDS: 0.9% Saline Lock 10 ML Syringe IV ×2 (16:31→20:13)
[2024-05-21] MEDS: Sertraline 50 MG Tablet 75 MG PO (20:10)
[2024-05-22] VITALS: BP 136/78; PULSE 77; RESP 14; TEMP 37; O2SAT 96
[2024-05-22] MEDS: Ketorolac 30 MG/ML Syringe IV ×2 (01:41→08:46)
[2024-05-22 04:00] VITALS: BP 129/78; PULSE 16; RESP 14; TEMP 36.6; O2SAT 98
--- NOTE | 2024-05-22 05:44 | NURSING ---
pt declining tylenol at this time. states she is feeling fine right now and would potentially like to take it in a couple hours
--- NOTE | 2024-05-22 07:17 | DS.PCM_ITS ---
Providers Date of Admission: 05/21/24 Date of Discharge: 05/22/24 Primary Care Physician: Delmar Avila, GABBIC Reason For Visit: REPEAT C SECTION Diagnosis Discharge Diagnosis (1) Previous section complicating : Status: Acute Code(s): O34.219 - Maternal care for unspecified type scar from previous delivery (2) S/P : Status: Acute Code(s): Z98.891 - History of uterine scar from previous surgery Plan discharge home Medications at Discharge Home Medications ifsaaxx-pgcl-YO 40 mg-1 mg chewable tablet 1 tab PO DAILY 03/26/23 sennosides 8.6 mg-docusate sodium 50 mg tablet (Stool Softener-Stimulant Laxative) 1 - 2 tab PO DAILY #0 tabs 03/30/23 sertraline 50 mg tablet 50 mg PO DAILY 04/29/24 Hospital Course Operations section Procedures None Summary of Care Provided Minutes Spent on Discharge: 21 Hospital Course: Repeat without complication. Breast feeding. Physical Exam Const alert General Appearance: cooperative GI GI Narrative: soft, moderate distention, fundus firm, appropriately tender. Abdominal bandage clean dry and intact Weight / BMI Weight Weight: 146.51 kg Body Mass Index (BMI) 45.0 ABG / Lab / Microbiology Data 05/21/24 11:13 Laboratory: Laboratory Results - last 24 hr 05/21/24 10:15: WBC Cancelled, Corrected WBC Cancelled, RBC Cancelled, Hgb Cancelled, Hct Cancelled, MCV Cancelled, MCH Cancelled, MCHC Cancelled, RDW Std Deviation Cancelled, RDW Coeff of Ariella Cancelled, Plt Count Cancelled, MPV Cancelled, Immature Gran % (Auto) Cancelled, Neut % (Auto) Cancelled, Lymph % (Auto) Cancelled, [place] % (Auto) Cancelled, Eos % (Auto) Cancelled, Baso % (Auto) Cancelled, Absolute Neuts (auto) Cancelled, Absolute Lymphs (auto) Cancelled, Total Counted Cancelled, Neutrophils % (Manual) Cancelled, Band Neutrophils % Cancelled, Lymphocytes % (Manual) Cancelled, Monocytes % (Manual) Cancelled, Eosinophils % (Manual) Cancelled, Basophils % (Manual) Cancelled, Metamyelocytes % Cancelled, Myelocytes % Cancelled, Promyelocytes % Cancelled, Blast Cells % Cancelled, Plasma Cell % (Manual) Cancelled, Other Cells % Cancelled, Nucleated RBC % Cancelled, Nucleated RBCs/100 WBC Cancelled, Differential Comment Cancelled, Diff Path Review Cancelled, Hypersegmented Neuts Cancelled, Atypical Lymphocytes Cancelled, Reactive Lymphocytes Cancelled, Smudge Cells Cancelled, Toxic Granulation Cancelled, Toxic Vacuolation Cancelled, Dohle Bodies Cancelled, Jose Rods Cancelled, Platelet Estimate Cancelled, Plt Morphology Comment Cancelled, RBC Morphology Cancelled 05/21/24 10:15: RBC Morphology Cancelled, Polychromasia Cancelled, Hypochromasia Cancelled, Basophilic Stippling Cancelled, Anisocytosis Cancelled, Microcytosis Cancelled, Macrocytosis Cancelled, Spherocytes Cancelled, Sickle Cells Cancelled, Target Cells Cancelled, Tear Drop Cells Cancelled, Ovalocytes Cancelled, Stomatocytes Cancelled, [place] Bodies Cancelled, High View Cells Cancelled, Bite Cells Cancelled, Crenated Cell Cancelled, Acanthocytes (Spur) Cancelled, Rouleaux Cancelled, Schistocytes Cancelled, Syphilis Total Ab Non- reactive, Blood Type O POSITIVE, Antibody Screen NEGATIVE 05/21/24 11:13: WBC 9.8, RBC 4.42, Hgb 9.5 L, Hct 31.4 L, MCV 71.0 L, MCH 21.5 L , MCHC 30.3 L, RDW Std Deviation 39.0, RDW Coeff of Ariella 15.6 H, Plt Count 237, MPV 10.2, Immature Gran % (Auto) 0.700, Neut % (Auto) 68.0, Lymph % (Auto) 22.9, Perkins % (Auto) 5.2, Eos % (Auto) 2.9, Baso % (Auto) 0.3, Absolute Neuts (auto) 6.6, Absolute Lymphs (auto) 2.24, Nucleated RBC % 0 D/C Instructions Discharge Diet: No restrictions May resume sexual activity in: 4-6 weeks Lifting Restrictions: 20 pounds Additional Activity Instructions: Nothing in the vagina for 4-6 weeks. You may return to work/school in 6 weeks. Call your doctor if your incision/area has: Continuous Slow Oozing, Sudden Increased Bleeding, Increased Pain/ Swelling, Increased Redness and Foul Smelling Discharge Call your doctor if you observe: Fever of 101 or Higher and Using more than 1 pad per hour (for 2 hours) Suture Line Care: Avoid Pulling/Pushing and Avoid Pinching/Bending Cleanse incision/area with: Keep Dressing Clean & Dry DC O2, CPAP, BIPAP Needs Home O2 Discharge instructions: No Please Follow Up With: Albina Wolfe MD When: Call to make an appointment for an incision check in 1-2 [phone]. You will need a post check in 6 weeks. Meaningful Use Info Meaningful Use Meaningful Use Diagnoses (Choose all that apply): None applicable Ischemic Stroke Statin Dosing Therapy Reference: STATIN DOSE THERAPY REFERENCE: * Patients > 75 years receive moderate or high dose statin therapy. * Patients 75 years or YOUNGER should receive HIGH intensity statin dose unless contraindicated. You will be required to document reason for non-treatment if statin daily dose does not meet guidelines. HIGH DOSE STATIN THERAPY DAILY Atorvastatin > than or = to 40 mg Rosuvastatin > than or = to 20 mg Amlodipine + Atorvastatin > than or = to 2.5/40 mg Ezetimibe + Simvastatin 10/80 mg Simvastatin 80mg Discharge Plan Admission Admit Date/Time: 05/21/24 09:43 Primary Reason for Your Visit: repeat Attending Provider: Majo La Primary Care Provider: Delmar Avila NP Discharge Orders/Prescriptions Prescriptions: Continued bjkobrl-cxej-QA 40-1 mg tablet,chewable 1 tab PO DAILY sennosides-docusate sodium [Stool Softener-Stimulant Laxat] 8.6-50 mg Tablet 1 - 2 tab PO DAILY Qty: 0 0RF sertraline 50 mg tablet 50 mg PO DAILY Referrals / Follow Up: Delmar Avila NP, PLASTICS PRODUCTION MACHINE OPERATOR-C [Primary Care Provider] - Disposition Disposition (needs filled in before D/C Order can be placed): Home, Self Care
--- NOTE | 2024-05-22 07:17 | PCM.PN.OB ---
Subjective Subjective Doing well. Ambulating and voiding without difficulty. Mild lochia. Breast feeding. Objective Data Objective Data Vital Signs: Vital Signs Temp Pulse Resp BP Pulse Ox O2 Del Method 98 F 16 L 14 129/78 H 98 Room Air 05/22/24 04:00 05/22/24 04:00 05/22/24 04:00 05/22/24 04:00 05/22/24 04:00 05/22/24 04:00 Oxygen Delivery Method Room Air Weight: 146.51 kg Body Mass Index (BMI) 45.0 Intake & Output: Intake and Output for Last 24 Hours 05/20/24 05/21/24 05/22/24 23:59 23:59 23:59 Intake Total 1380 / 1380 Output Total 1950 / 2100 150 / 150 Balance -570 / -720 -150 / -150 Lab / Micro Data 05/21/24 11:13 Labs: Laboratory Results - last 24 hr 05/21/24 10:15: WBC Cancelled, Corrected WBC Cancelled, RBC Cancelled, Hgb Cancelled, Hct Cancelled, MCV Cancelled, MCH Cancelled, MCHC Cancelled, RDW Std Deviation Cancelled, RDW Coeff of Ariella Cancelled, Plt Count Cancelled, MPV Cancelled, Immature Gran % (Auto) Cancelled, Neut % (Auto) Cancelled, Lymph % (Auto) Cancelled, [place] % (Auto) Cancelled, Eos % (Auto) Cancelled, Baso % (Auto) Cancelled, Absolute Neuts (auto) Cancelled, Absolute Lymphs (auto) Cancelled, Total Counted Cancelled, Neutrophils % (Manual) Cancelled, Band Neutrophils % Cancelled, Lymphocytes % (Manual) Cancelled, Monocytes % (Manual) Cancelled, Eosinophils % (Manual) Cancelled, Basophils % (Manual) Cancelled, Metamyelocytes % Cancelled, Myelocytes % Cancelled, Promyelocytes % Cancelled, Blast Cells % Cancelled, Plasma Cell % (Manual) Cancelled, Other Cells % Cancelled, Nucleated RBC % Cancelled, Nucleated RBCs/100 WBC Cancelled, Differential Comment Cancelled, Diff Path Review Cancelled, Hypersegmented Neuts Cancelled, Atypical Lymphocytes Cancelled, Reactive Lymphocytes Cancelled, Smudge Cells Cancelled, Toxic Granulation Cancelled, Toxic Vacuolation Cancelled, Dohle Bodies Cancelled, Jose Rods Cancelled, Platelet Estimate Cancelled, Plt Morphology Comment Cancelled, RBC Morphology Cancelled 05/21/24 10:15: RBC Morphology Cancelled, Polychromasia Cancelled, Hypochromasia Cancelled, Basophilic Stippling Cancelled, Anisocytosis Cancelled, Microcytosis Cancelled, Macrocytosis Cancelled, Spherocytes Cancelled, Sickle Cells Cancelled, Target Cells Cancelled, Tear Drop Cells Cancelled, Ovalocytes Cancelled, Stomatocytes Cancelled, [place] Bodies Cancelled, [place] Cells Cancelled, Bite Cells Cancelled, Crenated Cell Cancelled, Acanthocytes (Spur) Cancelled, Rouleaux Cancelled, Schistocytes Cancelled, Syphilis Total Ab Non-reactive, Blood Type O POSITIVE, Antibody Screen NEGATIVE 05/21/24 11:13: WBC 9.8, RBC 4.42, Hgb 9.5 L, Hct 31.4 L, MCV 71.0 L, MCH 21.5 L, MCHC 30.3 L, RDW Std Deviation 39.0, RDW Coeff of Ariella 15.6 H, Plt Count 237, MPV 10.2, Immature Gran % (Auto) 0.700, Neut % (Auto) 68.0, Lymph % (Auto) 22.9, [place] % (Auto) 5.2, Eos % (Auto) 2.9, Baso % (Auto) 0.3, Absolute Neuts (auto) 6.6, Absolute Lymphs (auto) 2.24, Nucleated RBC % 0 ROS Constitutional Constitutional: Denies fatigue, fever(s) or malaise Eyes Eyes: Denies change in vision ENT HEENT: Denies dizziness or headache(s) Cardiovascular Cardiovascular: Denies chest pain, dyspnea or lightheadedness Respiratory/Chest Respiratory/Chest: Denies cough or dyspnea Gastrointestinal Gastrointestinal: Denies change in bowel habits Genitourinary Genitourinary: Denies burning urination or genital lesions Integumentary Integumentary: Denies rash Neurologic Neurologic: Denies confusion, dizziness, headache(s), numbness or weakness Physical Exam Const alert General Appearance: cooperative GI GI Narrative: soft, moderate distention, fundus firm, appropriately tender. Abdominal bandage clean dry and intact Assessment & Plan (1) Previous section complicating : (2) S/P : PLAN: Plan discharge home
[2024-05-22 07:25] LABS: Hematocrit 29.8 % (37-47); Mean Corp Hgb Conc 30.2 g/dL (32-36); Mean Corpuscular Hgb 21.5 pg (27.0-32.0); Mean Corpuscular Volume 71.1 fL (81-99); Mean Platelet Vol. 9.9 fl (6.2-12.0); Platelet Count 239 K/mm3 (150-450); RBC Distribution Width CV 15.8 % (11.6-14.6); RBC Distribution Width SD 39.5 fl (35.1-43.9); Red Blood Count 4.19 M/mm3 (4.2-5.4); White Blood Count 10.4 K/mm3 (4.4-11.0)
[2024-05-22 08:00] VITALS: BP 121/70; PULSE 88; RESP 16; TEMP 36.8; O2SAT 96
[2024-05-22] MEDS: Acetaminophen 500 MG Tablet 1000 MG PO ×2 (09:11→15:57)
[2024-05-22] MEDS: Enoxaparin 40 MG/0.4 ML Syringe SC (11:15)
--- NOTE | 2024-05-22 11:23 | CASEMGMT ---
Social Work Assessment Labor and Delivery Unit Patient Address: [address] [place] [address] Phone number: [phone] Date of Referral: 05/21/24 Time of Referral:? 1650 Referred By: Dr. La Date of Intervention: ??05/22/24 Time of Intervention:? 1000 Reason for Referral:? hx of anxiety, and depression Sw completed chart review and acknowledges social work consult due to maternal mental health history. Sw presented to bedside and introduced self to mother of baby (MIMI- Erlinda) and father of baby (FOB- Asa). Sw explained sw involvement and completed psychosocial assessment. MOB willing to complete [place] due to mental health history. History obtained from: medical records, MOB and FOB. ??? Household composition:Currently residing in the family home is PHYLICIA LE, their 1 year old son, Guillermo and baby when ready for discharge. Parents deny any problems or concerns with housing, stating that it is safe and secure. Patient's parent/guardian status:? ?Parents met each other on Tinder and have been together now for 4 years, they got last June. MMII denies domestic violence or intimate partner violence stating that PHYLICIA is a good support to her. Medical History: ?MIMI is 24 year old female who is 2, para 1-now 2 following labor and delivery of . MIMI received routine care during with [facility]. MIMI presented to hospital for scheduled repeat at 39 weeks gestation on 05/20/24. Baby boy, named Ash York, was born weighing 8lb 5oz with apgars of 8 and 9 at one and five minutes of life, respectfully. MIMI is bottle feeding and states that baby will be followed by Dr. Mccoy. Educational Status:? Both parents graduated from high school and deny any problems with reading, learning or comprehension. Financial Status: Both parents aqre gainfully employed outside of the home. 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 Supplies: All necessary baby supplies obtained, including: car seat, safe sleep space, clothes, diapers and wipes. Childcare/Caregiver(s):? MIMI states that she will be the primary caregiver to baby, and hope that when both parents have returned to work they will be able to alternate their schedules so one of them is always with their children. Transportation:??Both parents have their drivers license and reliable means of transportation. Programs/Agencies Involved: ???MIMI states that she is connected to counseling provided by [facility], she meets with her counselor, Neda, every week. Children Services/Legal Issues:??No history of children services involvement, no issues or concerns warranting children services referral at this time. ? Behavioral Health Issues: ??Mental Health History:?FOB denies mental health history. MOB states that she has history of anxiety and depression. MOB states that she did struggle with depression after her first baby was born. MOB states that looking back she does not remember the first six months with her son, stating that she would sit and stare off and not realizing how much time had passed. MOB states during that time she felt a connection with the baby but not anyone else. MOB states that she talked to her OBGYN and they started her on sertraline. MOB states that going into this period she is still taking the sertraline and hopes that her mental health is better managed. ?? Substance Use History:?Parents deny substance use prior to and during . ? Family History: Parents deny family history of substance use or significant mental health diagnoses. ? Drug Screens: No drug screens observed in chart review. Family/Social Stressors:? MOB states that she does not have any specific struggles, issues or concerns. MOB states that she is worried going into this period about her mental health and navigating being a mom of two little ones and not just one. Support Systems: MOB states that her mom and FOB are her biggest supports. MOB states that her mom was able to recognize that she was struggling with her mental health even though she did not want to talk about it with anyone. MOB states that FOB is also able to recognize when she is struggling and he knows how to help and support her. Depression/Shaken Baby/Safe Sleeping: Sw educated parents on signs and symptoms of baby blues and mood and anxiety disorders to be mindful of going into this period. FOB states that he would be able to tell if MOB is struggling, and would know how to help her. Maternal grandma has plans on seeing MOB everyday now that baby has bee born. MOB completed an [place] Depression Scale, her score was 13. Sw provided education and support, informing MOB of red flags to be mindful of and when to talk to her prescriber and counselor. MOB expressed understanding. Sw educated parents on shaken baby prevention and ABCs of safe sleep, parents express understanding. ASSESSMENT:? MOB and baby admitted following labor and delivery of . MOB states that she struggled with her mental health following her delivery of her baby a year ago. MOB states that she put a lot of pressure on herself to do things independently and felt guilty and worthless if she had to ask for help. MOB states that she did not know how bad her depression had gotten until she talked to her OBGYN and started on sertraline. MOB states that she is still on the medication and connected to mental health services and supports so is hopeful that this experience is better from a mental health perspective. Parents talkative and receptive to sw involvement and support. MOB open and talkative about her experience. Parents have all necessary baby items and natural supports in place. PLAN:?? No other services requested or indicated. MOB and baby to be discharged when medically ready. Parents were provided literature regarding: signs and symptoms of baby blues and mood and anxiety disorders, Help Me Grow, shaken baby prevention, ABCs of safe sleep and a list of county resources that are available for them should any needs present themselves. Luisa Conte, SCREEN AND CYCLONE REPAIRER, MAINTENANCE PLUMBER
[2024-05-22 12:00] VITALS: BP 112/75; PULSE 79; RESP 16; TEMP 36.6; O2SAT 100
[2024-05-22] MEDS: Ibuprofen 600 MG Tablet PO (15:57)
[2024-05-22 16:24] VITALS: BP 119/71; PULSE 91; RESP 18; TEMP 36.7; O2SAT 100
== END 2024-05-22 17:25 | disposition home or self-care (01) | DRG 788 ==
PROVIDERS: Admitting Provider Obstetrics & Gynecology; PCP Nurse Practitioner Family; Referring Provider Obstetrics & Gynecology; Visit Provider Obstetrics & Gynecology
PROC: 10D00Z1 Extraction of Products of Conception, Low, Open Approach (ICD-10-PCS; CPT 59514; principal; 2024-05-21 11:45)
DX: O34.219 Maternal care for unspecified type scar from previous cesarean delivery (principal); F41.9 Anxiety disorder, unspecified; O99.344 Other mental disorders complicating childbirth; O69.81X0 Labor and delivery complicated by cord around neck, without compression, not applicable or unspecified; Z37.0 Single live birth; Z3A.39 39 weeks gestation of pregnancy; Z79.899 Other long term (current) drug therapy; Z87.59 Personal history of other complications of pregnancy, childbirth and the puerperium

== ENCOUNTER → 2024-08-06 | Outpatient (CLI) | payer OTHER, MEDICAID, SELFPAY ==
[2024-08-06 12:44] LABS: Absolute Lymphocyte Count 2.51 X10^3/uL (0.83-4.51); Absolute Neutrophil Count 6.4 X10^3/uL (2.0-7.7); Basophil# 0.07 X10^3/uL; Basophil% 0.7 % (0-1); Eosinophil# 0.39 X10^3/uL; Eosinophils% 3.9 % (0-5); Hematocrit 40.1 % (37-47); Hemoglobin 11.9 g/dL (12.0-15.0); Lymphocyte # 2.51 X10^3/ul (0.83-4.51); Mean Corp Hgb Conc 29.7 g/dL (32-36); Mean Corpuscular Hgb 21.1 pg (27.0-32.0); Mean Corpuscular Volume 71.2 fL (81-99); Mean Platelet Vol. 9.1 fl (6.2-12.0); Monocyte# 0.59 X10^3/uL; Monocyte% 5.9 % (0-10); NRBC Flagged by Analyzer 0 % (0-5); Neutrophil # 6.44 X10^3/uL (2.7-7.7); Neutrophil % 64.3 % (47-70); Platelet Count 356 K/mm3 (150-450); RBC Distribution Width SD 43.2 fl (35.1-43.9); Red Blood Count 5.63 M/mm3 (4.2-5.4)
[2024-08-06 13:54] LABS: ALB/GLOB Ratio 1.2 RATIO (0.9-2.4); AST(SGOT) 23 U/L (<=31); Alanine Aminotransfer ALT/SGPT 26 U/L (<=34); Albumin, Serum 4.1 g/dL (3.5-5.0); Alkaline Phosphatase 127 U/L (35-104); Anion Gap 12 (5-15); BUN 15 mg/dL (4-19); BUN/Creat Ratio 17.6 RATIO (10-20); Calcium,Total 9.4 mg/dL (7.6-11.0); Carbon Dioxide 20.2 mmol/L (21.0-32.0); Chloride 106 mmol/L (98-108); Creatinine, Serum 0.83 mg/dL (0.70-1.20); EST Glomerular Filtration Rate 100 (>60); Globulin 3.5 g/dL (2.2-4.2); Glucose 81 mg/dL (70-99); Potassium 4.3 mmol/L (3.3-5.1); Protein, Total 7.6 g/dL (5.9-8.4); Sodium Level 138 mmol/L (133-145); Total Bilirubin 0.21 mg/dL (0.00-1.30); Vitamin B12 635 pg/mL (180-914)
== END | disposition home or self-care (01) ==
DX: F32.A Depression, unspecified (principal)
CPT/HCPCS: 36415; 80053; 82306; 82607; 84443; 85025